=== PATIENT | male | born 1990 | race American Indian/Alaskan Native ===

== ENCOUNTER 2017-02-13 09:45 | Emergency (ER) | payer OTHER ==
[2017-02-13 09:49] VITALS: BMI 30.7
[2017-02-13] MEDS ORDERED: Sodium Chloride 0.9% 1,000 ML IV STA (10:42)
[2017-02-13 10:52] LABS: BASO # 0.1 K/uL (0.0-0.2); BASO % 0.6 % (0.0-2.0); EOS # 0.3 K/uL (0.0-0.7); EOS % 2.3 % (0.0-4.0); HEMATOCRIT 51.6 % (35.0-51.0); LYMPH # 4.2 K/uL (1.0-4.3); LYMPH % 28.7 % (20.0-40.0); MEAN CELL VOLUME 86.3 fl (80.0-94.0); MEAN CORPUSCULAR HEMOGLOBIN 28.1 pg (27.0-31.0); MEAN CORPUSCULAR HGB CONC 32.6 g/dL (33.0-37.0); MEAN PLATELET VOLUME 8.3 fl (7.2-11.7); MONO # 1.3 K/uL (0.0-0.8); MONO % 8.9 % (0.0-10.0); NEUT # 8.7 K/uL (1.8-7.0); NEUT % 59.5 % (50.0-75.0); NRBC % 0.2 % (0.0-0.0); RED CELL DISTRIBUTION WIDTH 13.7 % (11.5-14.5); WHITE BLOOD COUNT 14.7 K/uL (4.8-10.8)
[2017-02-13 11:06] LABS: ALB/GLOB RATIO 1.6 (1.0-2.1); ALCOHOL SERUM < 10 mg/dl (0-10); ALKALINE PHOSPHATASE 67 U/L (38-126); ALT/SGPT 60 U/L (21-72); AST/SGOT 48 U/L (17-59); BILIRUBIN,TOTAL 0.7 mg/dl (0.2-1.3); BLOOD UREA NITROGEN 13 mg/dl (9-20); CALCIUM 9.8 mg/dL (8.4-10.2); CARBON DIOXIDE 19 mmol/L (22-30); CHLORIDE 103 mmol/L (98-107); GFR AFRICAN-AMERICAN > 60; GLUCOSE,RANDOM 156 mg/dL (75-110); POTASSIUM 4.5 MMOL/L (3.6-5.0); SODIUM 140 mmol/l (132-148); TOTAL PROTEIN 8.1 G/DL (6.3-8.2)
--- NOTE | 2017-02-13 11:27 | CT ---
PROCEDURE: CT HEAD WITHOUT CONTRAST. HISTORY: syncope COMPARISON: None available. TECHNIQUE: Axial computed tomography images were obtained through the head/brain without intravenous contrast. Radiation dose: Total exam DLP = 877.64 mGy-cm. This CT exam was performed using one or more of the following dose reduction techniques: Automated exposure control, adjustment of the mA and/or kV according to patient size, and/or use of iterative reconstruction technique. FINDINGS: HEMORRHAGE: No intracranial hemorrhage. BRAIN: No mass effect or edema. No atrophy or chronic microvascular ischemic changes. VENTRICLES: Unremarkable. No hydrocephalus. CALVARIUM: Unremarkable. PARANASAL SINUSES: Unremarkable as visualized. No significant inflammatory changes. 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 Normal left mastoid air cells. There is fluid or soft tissue density in the right middle ear cavity and this may raise concern for otitis media. Please correlate clinically. OTHER FINDINGS: None. IMPRESSION: No intracranial mass, hemorrhage or evidence of acute infarct. Fluid/soft tissue density in right middle ear cavity. Please correlate clinically.
--- NOTE | 2017-02-13 11:45 | ED PDOC ---
Syncope/Near Syncope/Dizzyness Time Seen by Provider: 02/13/17 10:00 Chief Complaint (Nursing): Dizziness/Lightheaded Chief Complaint (Provider): Dizziness/Lightheaded History Per: Patient History/Exam Limitations: no limitations Onset/Duration Of Symptoms: Unknown Current Symptoms Are (Timing): Better Number Of Syncopal Episodes: 1 Activity At Onset Of Symptoms: Lying Associated Symptoms Preceding Syncopal Episode: No Predromal Symptoms (Sudden Onset) Seizure Or Post-ictal Symptoms: None Fall Associated With With Symptoms: Yes, No Injury As Result Of Fall Additional Complaint(s): Patient is a 27 year old male, otherwise healthy, brought to ED by EMS for possible syncope. As per patient, he woke up at 0800, went to the bathroom and went back to bed, no memory of incident until awoken by EMS. As per mother as bedside, patient fell from bed, unresponsive with a large amount of sweat. Patient states that when he came too he had leg pain and a headache but denies any other symptoms. Denies alcohol or drug use. Past Medical History Reviewed: Historical Data, Nursing Documentation, Vital Signs Vital Signs: Last Vital Signs Temp 98 F 02/13/17 09:49 Pulse 116 H 02/13/17 09:49 Resp 20 02/13/17 09:49 BP 115/70 02/13/17 09:49 Pulse Ox 98 02/13/17 09:53 - Medical History PMH: Asthma Denies: Chronic Kidney Disease - Surgical History Other surgeries: ACL repair - Family History Family History: States: Unknown Family Hx - Living Arrangements Living Arrangements: With Family - Social History Current smoker - smoking cessation education provided: No Alcohol: None Drugs: Denies - Home Medications Home Medications: Ambulatory Orders Medication Instructions Recorded Albuterol/Ipratropium [Duoneb 3 3 ml INH RTID PRN #0 neb 08/09/16 mg/0.5 mg (3 ml) UD] Amoxicillin/Clavulanate [Augmentin 1 tab PO Q12 #14 tab 08/09/16 875 MG-125 MG] Azithromycin [Zithromax] 250 mg PO DAILY #0 tab 08/09/16 - Allergies Allergies/Adverse Reactions: Allergies Allergy/AdvReac Type Severity Reaction Status Date / Time shellfish derived Allergy RASH Verified 08/05/16 09:50 Review of Systems ROS Statement: Except As Marked, All Systems Reviewed And Found Negative Constitutional: Positive for: Weakness. Negative for: Fever Eyes: Negative for: Vision Change Cardiovascular: Negative for: Chest Pain, Palpitations Respiratory: Negative for: Shortness of Breath Gastrointestinal: Negative for: Nausea, Vomiting Musculoskeletal: Positive for: Leg Pain Neurological: Positive for: Headache. Negative for: Weakness, Numbness Physical Exam - Reviewed Nursing Documentation Reviewed: Yes Vital Signs Reviewed: Yes - Physical Exam Appears: Positive for: Non-toxic, No Acute Distress Skin: Positive for: Normal Color, Warm Eye Exam: Positive for: Normal appearance Neck: Positive for: Normal, Painless ROM Cardiovascular/Chest: Positive for: Regular Rate, Rhythm. Negative for: Murmur Respiratory: Positive for: Normal Breath Sounds. Negative for: Respiratory Distress Gastrointestinal/Abdominal: Positive for: Normal Exam. Negative for: Tenderness Extremity: Positive for: Normal ROM. 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 Negative for: Motor/Sensory Deficits, Aphasia - Laboratory Results Result Diagrams: 02/13/17 10:40 02/13/17 10:40 - ECG O2 Sat by Pulse Oximetry: 98 (RA) Pulse Ox Interpretation: Normal Medical Decision Making Medical Decision Making: Time: 1025 Initial impression: Syncope Initial plan: -- CT-head -- EKG -- Tylenol -- Alcohol serum -- CMP -- UDS -- Salicylate -- Troponin -- CBC -- CXR -- NSF -- Urine culture -- U/A Time:1400 Labs reviewed, elevated WBC and sugar pt aware CT-head reviewed: PROCEDURE: CT HEAD WITHOUT CONTRAST. HISTORY: syncope COMPARISON: None available. TECHNIQUE: Axial computed tomography images were obtained through the head/brain without intravenous contrast. Radiation dose: Total exam DLP = 877.64 mGy-cm. This CT exam was performed using one or more of the following dose reduction techniques: Automated exposure control, adjustment of the mA and/or kV according to patient size, and/or use of iterative reconstruction technique. FINDINGS: HEMORRHAGE: No intracranial hemorrhage. BRAIN: No mass effect or edema. No atrophy or chronic microvascular ischemic changes. VENTRICLES: Unremarkable. No hydrocephalus. CALVARIUM: Unremarkable. PARANASAL SINUSES: Unremarkable as visualized. No significant inflammatory changes. 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 Normal left mastoid air cells. There is fluid or soft tissue density in the right middle ear cavity and this may raise concern for otitis media. Please correlate clinically. OTHER FINDINGS: None. IMPRESSION: No intracranial mass, hemorrhage or evidence of acute infarct. Fluid/soft tissue density in right middle ear cavity. Please correlate clinically. CXR results reviewed HISTORY: Syncope. COMPARISON: 08/07/2016. TECHNIQUE: Chest PA and lateral FINDINGS: LUNGS: No active pulmonary disease. PLEURA: No significant pleural effusion identified. No pneumothorax apparent. CARDIOVASCULAR: Normal. OSSEOUS STRUCTURES: No significant abnormalities. VISUALIZED UPPER ABDOMEN: Normal. OTHER FINDINGS: None. IMPRESSION: No active disease. No significant interval change compared to the prior examination(s). Time: 1510 Patient will be discharged home after vitals are retaken. Time: [address] examined his ears: no fluid noted. pt denies any ear or headache pain. Referred patient to outpatient ENT for a follow u p given ct finding. pt aware. also follow up with primary doctor/neurologist for kaley colvin.pt aware Scribe Attestation: Documented by Ivanna Ledesma acting as a scribe for Jamil Romero MD. Scribe Attestation: All medical record entries made by the Scribe were at my direction and personally dictated by me. I have reviewed the chart and agree that the record accurately reflects my personal performance of the history, physical exam, medical decision making, and the department course for this patient. I have also personally directed, reviewed, and agree with the discharge instructions and disposition. Disposition - Clinical Impression Clinical Impression: Syncope - Patient ED Disposition Is Patient to be Admitted: No Counseled Patient/Family Regarding: Studies Performed, Diagnosis, Need For Followup - Disposition Referrals: [facility] [Outside] [facility] [Outside] Hi Farrell MD [Staff Provider] - Disposition: Routine/Home Disposition Time: 12:30 Condition: IMPROVED Additional Instructions: follow up with your primary doctor in 1-2 days as well as ENT your sugar is high, please follow up return to the ED with any worsening or concerning symptoms. Instructions: Syncope (ED)
--- NOTE | 2017-02-13 13:30 | RAD ---
HISTORY: Syncope. COMPARISON: 08/07/2016. TECHNIQUE: Chest PA and lateral FINDINGS: LUNGS: No active pulmonary disease. PLEURA: No significant pleural effusion identified. No pneumothorax apparent. CARDIOVASCULAR: Normal. OSSEOUS STRUCTURES: No significant abnormalities. VISUALIZED UPPER ABDOMEN: Normal. OTHER FINDINGS: None. IMPRESSION: No active disease. No significant interval change compared to the prior examination(s).
[2017-02-13 14:37] LABS: RBC URINE 19 /hpf (0-3); URINE BILIRUBIN NEGATIVE (NEGATIVE); URINE BLOOD MODERATE (NEGATIVE); URINE COLOR YELLOW (YELLOW); URINE GLUCOSE (UA) NEG (Normal); URINE KETONE NEGATIVE (NEGATIVE); URINE LEUKOCYTE ESTERASE NEG Leu/uL (Negative); URINE PROTEIN 30 mg/dL (NEGATIVE); URINE UROBILINOGEN 0.2-1.0 mg/dL (0.2-1.0); WBC URINE 2 /hpf (0-5)
[2017-02-13 15:31] VITALS: BP 122/76; TEMP 98.3
[2017-02-13 15:42] VITALS: PULSE 88; RESP 18
[2017-02-13 15:51] VITALS: O2SAT 98
--- NOTE | 2017-02-13 17:03 | CARD ---
APPROVED REPORT EKG Measurement Heart [id number] ID [id number] <Conclusion> Sinus tachycardia Otherwise normal ECG
== END 2017-02-13 15:50 | disposition home or self-care (01) ==
LOC: H.ER 09:45
DX: R55 Syncope and collapse (principal); D72.829 Elevated white blood cell count, unspecified; J45.909 Unspecified asthma, uncomplicated

== ENCOUNTER 2017-05-28 08:19 | Observation (INO) | payer OTHER ==
[2017-05-28 08:19] VITALS: BMI 30.7
[2017-05-28] MEDS ORDERED: Sodium Chloride 0.9% 1,000 ML IV STA (08:43)
--- NOTE | 2017-05-28 08:47 | ED PDOC ---
Syncope/Near Syncope/Dizziness Time Seen by Provider: 05/28/17 08:21 Chief Complaint (Nursing): Dizziness/Lightheaded Chief Complaint (Provider): Syncopal Episode History Per: Family (mother) History/Exam Limitations: no limitations Onset/Duration Of Symptoms: Hrs (morning prior to arrival) Additional History Per: Patient Additional Complaint(s): Sergey Dc is a 27 year old male with a past medical history of asthma brought to the ED via EMS after experiencing a syncopal episode this morning. The patient has no recollection of the event, but was witnessed by his mother. The mother states the patient fell face first onto the ground, striking his head. The duration of loss of consciousness, according to the mother, lasted approximately 5 minutes. She denies any seizure activity or incontinence. The patient states he has not slept a lot this weekend and reports being tired. He denies chest pain, palpitations, or experiencing any other injury. PMD: None Provided Past Medical History Reviewed: Historical Data, Nursing Documentation, Vital Signs Vital Signs: Last Vital Signs Temp 97 F L 05/28/17 08:21 Pulse 110 H 05/28/17 08:21 Resp 20 05/28/17 08:21 BP 144/80 05/28/17 08:21 Pulse Ox 98 05/28/17 08:21 - Medical History PMH: Asthma Denies: Chronic Kidney Disease - Family History Family History: States: Unknown Family Hx - Social History Current smoker - smoking cessation education provided: No Ex-Smoker (has not smoked in the last 12 months): No Alcohol: Social Drugs: Denies - Home Medications Home Medications: Ambulatory Orders Medication Instructions Recorded Albuterol HFA [Ventolin HFA 90 2 puff IH Q4H PRN 05/28/17 mcg/actuation (8 g)] - Allergies Allergies/Adverse Reactions: Allergies Allergy/AdvReac Type Severity Reaction Status Date / Time shellfish derived Allergy RASH Verified 05/28/17 08:21 Review of Systems ROS Statement: Except As Marked, All Systems Reviewed And Found Negative Constitutional: Positive for: Other (syncopal episode) Cardiovascular: Negative for: Chest Pain, Palpitations Genitourinary Male: Negative for: Incontinence (and no seizure activity) Musculoskeletal: Positive for: Other (head injury) Neurological: Positive for: Other (LOC) Physical Exam - Reviewed Nursing Documentation Reviewed: Yes Vital Signs Reviewed: Yes - Physical Exam Appears: Positive for: Non-toxic, No Acute Distress Head Exam: Positive for: ATRAUMATIC. Negative for: NORMOCEPHALIC (head soft tissue swelling to left frontal area with no palpable fracture) Eye Exam: Positive for: Normal appearance, EOMI, PERRL (PERRLA) Neck: Positive for: Normal (nontendor) Cardiovascular/Chest: Positive for: Regular Rate, Rhythm, Chest Non Tender. Negative for: Murmur Respiratory: Positive for: Normal Breath Sounds. Negative for: Respiratory Distress Gastrointestinal/Abdominal: Positive for: Normal Exam, Soft. Negative for: Tenderness Extremity: Positive for: Normal ROM. Negative for: Deformity Neurologic/Psych: Positive for: Alert, Oriented (x3). Negative for: Motor/ Sensory Deficits - Laboratory Results Result Diagrams: 05/28/17 08:50 05/28/17 08:50 - ECG O2 Sat by Pulse Oximetry: 98 Medical Decision Making Medical Decision Making: Time: 08:21 Impression: Syncopal Episode Plan: * CT Head w/o Contrast * ED EKG * CMP * Drug Screen, Urine * CBC (with differential) * [RAD] Chest Two Views PA/LAT * NS 0.9% 1,000 ml IV 100 mls/hr * Reevaluation Scribe Attestation: Documented by Leatha Worthy, acting as a scribe for Quinn Swift MD. Provider Scribe Attestation: All medical record entries made by the Scribe were at my direction and personally dictated by me. I have reviewed the chart and agree that the record accurately reflects my personal performance of the history, physical exam, medical decision making, and the department course for this patient. I have also personally directed, reviewed, and agree with the discharge instructions and disposition. Disposition - Clinical Impression Clinical Impression: Syncope, Seizure - Patient ED Disposition Is Patient to be Admitted: Yes - Disposition Disposition Time: 10:16 Condition: FAIR Forms: [facility] ([place]) - Pt Status Changed To: Hospital Disposition Of: Observation - POA Present On Arrival: None
[2017-05-28 09:07] LABS: BASO # 0.1 K/uL (0.0-0.2); BASO % 0.9 % (0.0-2.0); EOS # 0.2 K/uL (0.0-0.7); EOS % 1.5 % (0.0-4.0); HEMATOCRIT 45.9 % (35.0-51.0); LYMPH # 3.2 K/uL (1.0-4.3); LYMPH % 20.9 % (20.0-40.0); MEAN CORPUSCULAR HEMOGLOBIN 27.6 pg (27.0-31.0); MEAN CORPUSCULAR HGB CONC 32.9 g/dL (33.0-37.0); MEAN PLATELET VOLUME 8.1 fl (7.2-11.7); MONO # 1.5 K/uL (0.0-0.8); NEUT # 10.1 K/uL (1.8-7.0); NEUT % 66.7 % (50.0-75.0); NRBC % 0.1 % (0.0-0.0); RED CELL DISTRIBUTION WIDTH 13.6 % (11.5-14.5); WHITE BLOOD COUNT 15.2 K/uL (4.8-10.8)
[2017-05-28 09:10] LABS: MEAN CELL VOLUME 83.9 fl (80.0-94.0)
[2017-05-28 09:20] LABS: ALB/GLOB RATIO 1.5 (1.0-2.1); ALKALINE PHOSPHATASE 55 U/L (38-126); ALT/SGPT 59 U/L (21-72); AST/SGOT 70 U/L (17-59); BLOOD UREA NITROGEN 16 mg/dl (9-20); CALCIUM 9.2 mg/dL (8.4-10.2); CARBON DIOXIDE 22 mmol/L (22-30); CHLORIDE 105 mmol/L (98-107); GFR AFRICAN-AMERICAN > 60; GLUCOSE,RANDOM 101 mg/dL (75-110); SODIUM 139 mmol/l (132-148); TOTAL PROTEIN 7.6 G/DL (6.3-8.2)
--- NOTE | 2017-05-28 09:20 | CT ---
PROCEDURE: CT HEAD WITHOUT CONTRAST. HISTORY: r/o bleed COMPARISON: None available. TECHNIQUE: Axial computed tomography images were obtained through the head/brain without intravenous contrast. Radiation dose: Total exam DLP = 910 mGy-cm. This CT exam was performed using one or more of the following dose reduction techniques: Automated exposure control, adjustment of the mA and/or kV according to patient size, and/or use of iterative reconstruction technique. FINDINGS: HEMORRHAGE: No intracranial hemorrhage. BRAIN: No mass effect or edema. No atrophy or chronic microvascular ischemic changes. VENTRICLES: Unremarkable. No hydrocephalus. CALVARIUM: Left frontal soft tissue hematoma. PARANASAL SINUSES: Unremarkable as visualized. No significant inflammatory changes. MASTOID AIR CELLS: Unremarkable as visualized. No inflammatory changes. OTHER FINDINGS: None. IMPRESSION: No intracranial hemorrhage.
[2017-05-28 09:33] LABS: POTASSIUM 5.3 MMOL/L (3.6-5.0)
--- NOTE | 2017-05-28 11:51 | CARD ---
APPROVED REPORT EKG Measurement Heart [id number] AR [id number] <Conclusion> Normal sinus rhythm Normal ECG
--- NOTE | 2017-05-28 12:36 | MRI ---
PROCEDURE: MRI BRAIN WITHOUT CONTRAST HISTORY: seizure COMPARISON: None. TECHNIQUE: Multiplanar, multisequence MR images of the brain were obtained without intravenous contrast enhancement. FINDINGS: HEMORRHAGE: None DWI: No evidence of an acute or early subacute infarction. BRAIN PARENCHYMA: No mass effect or edema. No atrophy or chronic microvascular ischemic changes. VENTRICLES: Unremarkable. No hydrocephalus. CRANIUM: Unremarkable. ORBITS: Grossly unremarkable. PARANASAL SINUSES/MASTOIDS: There is a fluid signal in the right maxillary and middle ear. Correlate clinically for right otomastoiditis. VASCULAR SYSTEM: Skull base flow voids intact. OTHER FINDINGS: There is left frontal scalp soft tissue swelling. IMPRESSION: No evidence of acute intracranial hemorrhage intracranial collection mass effect or midline shift. Right mastoid and middle ear effusion suspicious for otomastoiditis. Left frontal scalp soft tissue swelling.
--- NOTE | 2017-05-28 14:01 | RAD ---
HISTORY: syncope COMPARISON: Comparison chest 02/13/2017 TECHNIQUE: Chest PA and lateral FINDINGS: LUNGS: No active pulmonary disease. PLEURA: No significant pleural effusion identified. No pneumothorax apparent. CARDIOVASCULAR: Normal. OSSEOUS STRUCTURES: No significant abnormalities. VISUALIZED UPPER ABDOMEN: Normal. OTHER FINDINGS: None. IMPRESSION: No active disease.
[2017-05-28] MEDS ORDERED: Influenza Vaccine 18yr & older 0.5 ML/45 MCG SYR IM ONE (14:21)
[2017-05-28] MEDS ORDERED: Albuterol HFA 90 mcg/actuation (8 g) INH PRN (16:20)
--- NOTE | 2017-05-28 17:41 | CP.PCM.CON ---
History of Present Illness - History of Present Illness History of Present Illness: PATIENT SEEN CONSULT DICTATEED WORK UP COMPLETED NO AED IS NEEDED NEEDS AMB EEG AN OP NEED CARDIO CLEARANCE PRIOR TO DC Past Patient History - Infectious Disease Hx of Infectious Diseases: None - Past Medical History & Family History Past Medical History?: Yes - Past Social History Smoking Status: Never Smoked - CARDIAC Hx Cardiac Disorders: No - PULMONARY Hx Respiratory Disorders: Yes Hx Asthma: Yes - NEUROLOGICAL Hx Neurological Disorder: No - HEENT Hx HEENT Problems: No - RENAL Hx Chronic Kidney Disease: No - ENDOCRINE/METABOLIC Hx Endocrine Disorders: No - HEMATOLOGICAL/ONCOLOGICAL Hx Blood Disorders: No - INTEGUMENTARY Hx Dermatological Problems: No - MUSCULOSKELETAL/RHEUMATOLOGICAL Hx Falls: Yes Other/Comment: left knee ACL repair - GASTROINTESTINAL Hx Gastrointestinal Disorders: No - GENITOURINARY/GYNECOLOGICAL Hx Genitourinary Disorders: No - PSYCHIATRIC Hx Psychophysiologic Disorder: No Hx Substance Use: No - SURGICAL HISTORY Hx Surgeries: Yes Hx Orthopedic Surgery: Yes (Left knee surgery to repair ACL) - ANESTHESIA Hx Anesthesia: Yes Hx Anesthesia Reactions: No Hx Malignant Hyperthermia: No Meds Allergies/Adverse Reactions: Allergies Allergy/AdvReac Type Severity Reaction Status Date / Time shellfish derived Allergy RASH Verified 05/28/17 08:21 - Medications Medications: Current Medications Albuterol (Ventolin Hfa 90 Mcg/Actuation (8 G)) 2 puff INH RQ6 PRN PRN Reason: Shortness of Breath Enoxaparin Sodium (Lovenox) 40 mg SC DAILY EDWAR PRN Reason: Protocol Sodium Chloride (Sodium Chloride 0.9%) 1,000 mls @ 100 mls/hr IV .Q10H STA Stop: 05/28/17 18:42 Last Admin: 05/28/17 09:13 Dose: 100 mls/hr Results - Vital Signs Recent Vital Signs: Last Vital Signs Temp 97.7 F 05/28/17 15:28 Pulse 74 05/28/17 15:28 Resp 20 05/28/17 15:28 BP 112/74 05/28/17 15:28 Pulse Ox 98 05/28/17 15:28 - Labs Result Diagrams: 05/28/17 08:50 05/28/17 08:50
--- NOTE | 2017-05-28 22:07 | CP.PCM.HP ---
History of Present Illness - History of Present Illness History of Present Illness: A 27 yr old male with no sig PMHx came with c\o lost conscious after stressful with poor PO intake food\fluids .notes he is been working many hrs and has stress . hx of one simialr episode in past denies seizure likwe activity, urine\bowel incontinence. so far [employer] work Past Patient History - Infectious Disease Hx of Infectious Diseases: None - Past Medical History & Family History Past Medical History?: Yes - Past Social History Smoking Status: Never Smoked - CARDIAC Hx Cardiac Disorders: No - PULMONARY Hx Respiratory Disorders: Yes Hx Asthma: Yes - NEUROLOGICAL Hx Neurological Disorder: No - HEENT Hx HEENT Problems: No - RENAL Hx Chronic Kidney Disease: No - ENDOCRINE/METABOLIC Hx Endocrine Disorders: No - HEMATOLOGICAL/ONCOLOGICAL Hx Blood Disorders: No - INTEGUMENTARY Hx Dermatological Problems: No - MUSCULOSKELETAL/RHEUMATOLOGICAL Hx Falls: Yes Other/Comment: left knee ACL repair - GASTROINTESTINAL Hx Gastrointestinal Disorders: No - GENITOURINARY/GYNECOLOGICAL Hx Genitourinary Disorders: No - PSYCHIATRIC Hx Psychophysiologic Disorder: No Hx Substance Use: No - SURGICAL HISTORY Hx Surgeries: Yes Hx Orthopedic Surgery: Yes (Left knee surgery to repair ACL) - ANESTHESIA Hx Anesthesia: Yes Hx Anesthesia Reactions: No Hx Malignant Hyperthermia: No Meds Allergies/Adverse Reactions: Allergies Allergy/AdvReac Type Severity Reaction Status Date / Time shellfish derived Allergy RASH Verified 05/28/17 08:21 Physical Exam - Additional Findings Additional findings: Appears: Positive for: Non-toxic, No Acute Distress Head Exam: Positive for: ATRAUMATIC. Negative for: NORMOCEPHALIC (head soft tissue swelling to left frontal area with no palpable fracture) Eye Exam: Positive for: Normal appearance, EOMI, PERRL (PERRLA) Neck: Positive for: Normal (nontendor) Cardiovascular/Chest: Positive for: Regular Rate, Rhythm, Chest Non Tender. Negative for: Murmur Respiratory: Positive for: Normal Breath Sounds. Negative for: Respiratory Distress Gastrointestinal/Abdominal: Positive for: Normal Exam, Soft. Negative for: Tenderness Extremity: Positive for: Normal ROM. Negative for: Deformity Neurologic/Psych: Positive for: Alert, Oriented (x3). Negative for: Motor/ Sensory Deficits Results - Vital Signs Recent Vital Signs: Last Vital Signs Temp 98.3 F 05/28/17 18:58 Pulse 78 05/28/17 18:58 Resp 20 05/28/17 18:58 BP 125/76 05/28/17 18:58 Pulse Ox 99 05/28/17 18:58 - Labs Result Diagrams: 05/29/17 04:30 05/29/17 04:30 Labs: Laboratory Results - last 24 hr 05/28/17 18:30 Troponin I < 0.0120 Assessment & Plan (1) Syncope Status: Acute Comment: r\o seizures. neurochecks. ekg\trops q 8hr. ASA. neurology. MRI of the head\carotid doppler. ECHO. Orion vasovagal
[2017-05-29 05:59] LABS: HEMATOCRIT 43.6 % (35.0-51.0); MEAN CORPUSCULAR HEMOGLOBIN 28.1 pg (27.0-31.0); MEAN CORPUSCULAR HGB CONC 33.4 g/dL (33.0-37.0); RED CELL DISTRIBUTION WIDTH 13.4 % (11.5-14.5); WHITE BLOOD COUNT 14.7 K/uL (4.8-10.8)
[2017-05-29 06:12] LABS: ALB/GLOB RATIO 1.5 (1.0-2.1); ALKALINE PHOSPHATASE 59 U/L (38-126); ALT/SGPT 58 U/L (21-72); AST/SGOT 68 U/L (17-59); BILIRUBIN,TOTAL 0.8 mg/dl (0.2-1.3); BLOOD UREA NITROGEN 14 mg/dl (9-20); CALCIUM 8.7 mg/dL (8.4-10.2); CARBON DIOXIDE 24 mmol/L (22-30); CHLORIDE 105 mmol/L (98-107); GFR AFRICAN-AMERICAN > 60; GLUCOSE,RANDOM 90 mg/dL (75-110); SODIUM 140 mmol/l (132-148)
[2017-05-29 06:37] LABS: THYROID STIMULATING HORMONE 0.31 mIU/ML (0.46-4.68)
--- NOTE | 2017-05-29 07:30 | CARD ---
APPROVED REPORT EKG Measurement Heart [id number] CO 158P52 [id number] <Conclusion> Normal sinus rhythm Normal ECG
--- NOTE | 2017-05-29 07:33 | CARD ---
APPROVED REPORT EKG Measurement Heart [id number] OK 154P43 [id number] <Conclusion> Sinus tachycardia Otherwise normal ECG
--- NOTE | 2017-05-29 07:59 | CON ---
DATE: 05/28/2017 REASON FOR CONSULTATION: Loss of consciousness. CHIEF COMPLAINT: The patient was brought in by EMS this morning with the history of syncopal attack at home. From neurological point of view, I was called into evaluate him for further management. HISTORY OF PRESENT ILLNESS: Mr. Sergey Dc is a 27-year-old, morbidly obese, right-handed, male in usual state of health woke up this morning, he went to the kitchen to drink water and the next thing he realized he was on the floor. He bit his tongue. At that time, he fell down. No urinary incontinence. No bowel and bladder incontinence. No history of involuntary movements being witnessed by his mother, 911 was called, immediately he was transferred to the EMS and brought into [facility] for further evaluation. He has a similar episode last month. He fell down from the bed and he lost his consciousness. He was admitted and he did have workup. No diagnoses was made at that time. PAST MEDICAL HISTORY: Unremarkable. ALLERGIES: SHELLFISH. PERSONAL HISTORY: Denied smoking or alcohol use. REVIEW OF SYSTEMS: A 16-point system had been reviewed. From neurologic standpoint, recurrent syncope. PHYSICAL EXAMINATION: VITAL SIGNS: Blood pressure 112/70 with mean arterial pressure of 83, respiratory rate 18, and temperature afebrile. NECK: Supple. No carotid bruits. HEART: Sounds regular. CHEST: Fair air entry. EXTREMITIES: No edema of legs. NEUROLOGICAL: Mental status examination, he is awake, alert, and oriented to person, place, and time. His speech is clear. Naming, repetition, fluency, and comprehension all within normal. MOTOR EXAMINATION: He was able to lift both upper extremities against gravity. No drift noted. Power is symmetric on either side. Deep tendon reflexes are absent. Plantars are downgoing. Coordination, [id number] test was intact. Gait is normal. The scalp swelling over the left front being noted. Rest of the examination is normal. LABORATORY DATA: CT of the head being reviewed by me and MRI of the brain also reviewed by me. No evidence of structural cause, tumor, or bleed. Medial temporal lobe is normal. No Hippocampal atrophy noted. Electroencephalogram have been reviewed. No electroencephalographic focal slowing or paroxysmal activities activities. Labs, WBC 13.2, hemoglobin 15.1, hematocrit 45.9, and platelet 307. Sodium 139, potassium 5.3, chloride 105, BUN 16, creatinine 1.2. Urine tox screen negative. RECOMMENDATIONS: Recurrent syncopal attack. Cardiac workup is recommended. Cardiology should be seen before his discharge. From neurologic point of view, no further workup is needed. The patient is advised to see me for follow-up visit as outpatient for possible extensive ambulatory electroencephalogram. In the meantime, the patient is advised not to drive until the workup is completed. Phill Garcia MD MTDD
[2017-05-29] MEDS ORDERED: Enoxaparin 40 mg Syringe SC SCH (09:00)
--- NOTE | 2017-05-29 09:40 | EEG ---
DATE OF STUDY: 05/28/2017 This is a 16-channel electroencephalogram of awake and drowsy adult. During the study, photic stimulation was performed. Hyperventilation was not performed. The resting electroencephalogram consists of 30 to 40 microvolts, 9 to 11 hertz alpha activity seen at parietal and occipital leads. Anteriorly, fast activity superimposed with 2 to 3 hertz delta activity seen at frontal and central leads. The photic stimulation did not evoke driving response noted at 2 to 20 hertz. Intermittent movement artifact contaminated the background rhythm. At times, a brief period of high-amplitude delta activity is seen which is consistent with late drowsiness. IMPRESSION: This is a normal electroencephalogram of awake and drowsy adult. During the study, neither electroencephalographic paroxysmal activities nor focal slowing noted. Phill Garcia MD
--- NOTE | 2017-05-29 11:01 | US ---
PROCEDURE: Duplex ultrasound of the carotid and vertebral arteries. HISTORY: syncope COMPARISON: None available. TECHNIQUE: Grayscale and duplex Doppler evaluation of the cervical carotid and vertebral arteries were performed. The common carotid, carotid bifurcations and cervical ICA and proximal ECA were evaluated. The vertebral arteries were evaluated for gross patency and direction. FINDINGS: RIGHT CAROTID ARTERIES: Common Carotid Artery: Normal. Maximal flow velocity of 98.8 cm/s. Carotid Bifurcation: Normal. Internal Carotid Artery:Heterogeneous plaque formation. Maximal flow velocity of 78.6 cm/s. External Carotid Artery (proximal branches): Normal. Maximal flow velocity of 82.8 cm/s. ICA/CCA Ratio: 1.0 LEFT CAROTID ARTERIES: Common Carotid Artery: Normal. Maximal flow velocity of 126.8 cm/s. Carotid Bifurcation: Normal Internal Carotid Artery:Heterogeneous plaque formation. Maximal flow velocity of 119.3 cm/s. External Carotid Artery (proximal branches): Normal. Maximal flow velocity of 53.8 cm/s. ICA/CCA Ratio: VERTEBRAL ARTERIES: Right Vertebral Artery: Patent. Antegrade flow. Left Vertebral Artery: Patent. Antegrade flow. OTHER FINDINGS: None. IMPRESSION: Right ICA degree of stenosis: Less than 50% Left ICA degree of stenosis: Less than 50% Reference Internal Carotid Artery (ICA) Peak Systolic Velocity (PSV) for above: 1. Less than 50% stenosis less than 125 cm/s peak systolic velocity 2. 50-69% stenosis 125-230cm/s peak systolic velocity 3. Greater than 70% but less than near occlusion greater than 230 cm/s peak systolic velocity
[2017-05-29 12:27] VITALS: O2SAT 98
--- NOTE | 2017-05-29 15:44 | CARD ---
APPROVED REPORT EXAM: Two-dimensional and M-mode echocardiogram with Doppler and color Doppler. Other Information Quality : GoodRhythm : NSR INDICATION Syncope 2D DIMENSIONS IVSd1.45 (0.7-1.1cm)LVDd5.66 (3.9-5.9cm) LVOT Diameter2.37 (1.8-2.4cm)PWd0.87 (0.7-1.1cm) IVSs2.00 (0.8-1.2cm)LVDs3.76 (2.5-4.0cm) FS (%) 33.5 %PWs1.67 (0.8-1.2cm) M-Mode DIMENSIONS Left Atrium (MM)3.94 (2.5-4.0cm)IVSd1.34 (0.7-1.1cm) Aortic Root3.28 (2.2-3.7cm)LVDd5.00 (4.0-5.6cm) Aortic Cusp Exc.1.94 (1.5-2.0cm)PWd1.38 (0.7-1.1cm) IVSs1.28 cmFS (%) 14 % LVDs4.31 (2.0-3.8cm)PWs1.25 cm Mitral Valve MV E Hwpsllnf42.8cm/sMV DECEL [id number] A Oknciiqq76.9cm/s MV [id number]/A ratio1.7MVA (PHT)2.95cm2 TDI Lateral E' Peak V14.83cm/sMedial E' Peak V13.53cm/sE/Lateral E'4.6 E/Medial E'5.1 Pulmonary Valve PV Peak Swoizrzr90.2cm/s Tricuspid Valve TR Peak Gpbidyct690xj/sRAP [id number] Peak Gr.16mmHg [id number] LEFT VENTRICLE The left ventricle is normal size. There is normal left ventricular wall thickness. The left ventricular function is normal. The left ventricular ejection fraction is within the normal range. The Ejection Fraction is 65-70%. There is normal LV segmental wall motion. The left ventricular diastolic function is normal. No left ventricle thrombus noted on this study. There is no mass noted in the left ventricle. RIGHT VENTRICLE The right ventricle is normal size. There is normal right ventricular wall thickness. The right ventricular systolic function is normal. ATRIA The left atrium size is normal. The right atrium size is normal. The interatrial septum is intact with no evidence for an atrial septal defect. AORTIC VALVE The aortic valve is normal in structure and function. No aortic regurgitation is present. There is no aortic valvular stenosis. There is no aortic valvular vegetation. MITRAL VALVE The mitral valve is normal in structure and function. There is no evidence of mitral valve prolapse. There is no mitral valve stenosis. There is no mitral valve regurgitation noted. TRICUSPID VALVE The tricuspid valve is normal in structure and function. There is no tricuspid valve regurgitation noted. There is no tricuspid valve prolapse or vegetation. There is no tricuspid valve stenosis. PULMONIC VALVE The pulmonary valve is normal in structure and function. There is no pulmonic valvular regurgitation. There is no pulmonic valvular stenosis. GREAT VESSELS The aortic root is normal in size. The IVC is normal in size and collapses >50% with inspiration. PERICARDIAL EFFUSION The pericardium appears normal. There is no pleural effusion. <Conclusion> The left ventricle is normal size. The left ventricular function is normal. The left ventricular ejection fraction is within the normal range. The Ejection Fraction is 65-70%.
--- NOTE | 2017-05-29 16:51 | CARD ---
APPROVED REPORT EKG Measurement Heart [id number] <Conclusion> Normal sinus rhythm Normal ECG
[2017-05-29] MEDS ORDERED: Magnesium Sulfate 2 gm/50 ml 2 GM/50 ML BAG IV ONE (17:00)
[2017-05-29 19:03] VITALS: BP 136/83; PULSE 84; RESP 20; TEMP 98.1
[2017-05-29] MEDS ORDERED: Albuterol HFA 90 mcg/actuation (8 g) IH PRN (19:41)
--- NOTE | 2017-05-29 21:30 | CP.PCM.CON ---
History of Present Illness - History of Present Illness History of Present Illness: Two syncopal episodes. One occurred as he was getting out of bed the other was after standing from seated position. Pt had no presyncopal sx prior to the first event. Prior to the second event he felt lightheaded for several settings. denies cp, sob on exertion, orthopnea, pnd, edema, palp, blurry vision. denies f/c/n/v/d/c. denies prior hx of sz d/o or syncope. pt has no fam hx of scd. Review of Systems - Constitutional Constitutional: As Per HPI. absent: Anorexia, Chills, Daytime Sleepiness, Excessive Sweating, Fatigue, Fever, Frequent Falls, Headache, Increased Appetite , Lethargy, Malaise, Night Sweats, Snoring, Sleep Apnea, Weight Gain, Weight Loss, Weakness, Other - EENT Eyes: As Per HPI. absent: Blind Spots, Blurred Vision, Change in Vision, Decreased Night Vision, Diplopia, Discharge, Dry Eye, Exophthalmos, Floaters, Irritation, Itchy Eyes, Loss of Peripheral Vision, Pain, Photophobia, Requires Corrective Lenses, Sees Flashes, Spots in Vision, Tunnel Vision, Other Visual Disturbances, Loss of Vision, Other Ears: As Per HPI. absent: Decreased Hearing, Ear Discharge, Ear Pain, Tinnitus , Abnormal Hearing, Disequilibrium, Dizziness, Other Nose/Mouth/Throat: As Per HPI. absent: Epistaxis, Nasal Congestion, Nasal Discharge, Nasal Obstruction, Nasal Trauma, Nose Pain, Post Nasal Drip, Sinus Pain, Sinus Pressure, Bleeding Gums, Change in Voice, Dental Pain, Dry Mouth, Dysphagia, Halitosis, Hoarsness, Lip Swelling, Mouth Lesions, Mouth Pain, Odynophagia, Sore Throat, Throat Swelling, Tongue Swelling, Facial Pain, Neck Pain, Neck Mass, Other - Cardiovascular Cardiovascular: As Per HPI, Lightheadedness, Syncope. absent: Acrocyanosis, Chest Pain, Chest Pain at Rest, Chest Pain with Activity, Claudication, Diaphoresis, Dyspnea, Dyspnea on Exertion, Edema, Irregular Heart Rhythm, Pain Radiating to Arm/Neck/Jaw, Leg Edema, Leg Ulcers, Orthopnea, Palpitations, Paroxysmal Nocturnal Dyspnea, Pedal Edema, Radiating Pain, Rapid Heart Rate, Slow Heart Rate, Other - Respiratory Respiratory: As Per HPI. absent: Cough, Dyspnea, Hemoptysis, Dyspnea on Exertion, Wheezing, Snoring, Stridor, Pain on Inspiration, Chest Congestion, Excessive Mucous Production, Change in Mucous Color, Pain with Coughing, Other - Gastrointestinal Gastrointestinal: As Per HPI. absent: Abdominal Pain, Belching, Bloating, Change in Bowel Habits, Change in Stool Character, Coffee Ground Emesis, Constipation, Cramping, Diarrhea, Dyspepsia, Dysphagia, Early Satiety, Excessive Flatus, Fecal Incontinence, Heartburn, Hematemesis, Hematochezia, Loose Stools, Melena, Nausea, Odynophagia, Temesmus, Vomiting, Other - Genitourinary Genitourinary: As Per HPI. absent: Change in Urinary Stream, Difficulty Urinating, Dysuria, Flank Pain, Hematuria, Pyuria, Nocturia, Urinary Incontinence, Urinary Frequency, Urinary Hesitance, Urinary Urgency, Voiding Freq/Small Amts, Freq UTI, Hx Renal/Bladder Calculi, Hx /Renal Surgery, Bladder Distension, Other - Musculoskeletal Musculoskeletal: As Per HPI. absent: Abnormal Gait, Arthralgias, Atrophy, Back Pain, Deformity, Joint Swelling, Limited Range of Motion, Loss of Height, Muscle Cramps, Muscle Weakness, Myalgias, Neck Pain, Numbness, Radiating Pain into Limb, Stiffness, Tingling, Other - Integumentary Integumentary: As Per HPI. absent: Acne, Alopecia, Bleeding Lesions, Change in Hair, Change in Nails, Change in Pigmentation, Changing Lesions, Dry Skin, Erythema, Furuncle, Hirsutism, Lesions, New Lesions, Non-Healing Lesions, Photosensitivity, Pruritus, Rash, Skin Pain, Skin Ulcer, Sores, Striae, Swelling , Unusual Bruising, Wounds, Jaundice, Other - Neurological Neurological: As Per HPI. absent: Abnormal Gait, Abnormal Hearing, Abnormal Movements, Abnormal Speech, Behavioral Changes, Burning Sensations, Confusion, Convulsions, Disequilibrium, Dizziness, Numbness, Focal Weakness, Frequent Falls , Headaches, Lack of Coordination, Loss of Vision, Memory Loss, Paresthesias, Radicular Pain, Restless Legs, Sensory Deficit, Syncope, Tingling, Tremor, Vertigo, Weakness, Other Visual Disturbances, Other - Psychiatric Psychiatric: As Per HPI. absent: Abnormal Sleep Pattern, Anhedonia, Anxiety, Auditory Hallucinations, Behavioral Changes, Change in Appetite, Change in Libido, Confusion, Depression, Difficulty Concentrating, Hallucinations, Homicidal Ideation, Hopelessness, Irritability, Memory Loss, Mood Swings, Panic Attacks, Paranoia, Suicidal Ideation, Visual Hallucinations, Tactile Hallucinations, Other - Endocrine Endocrine: As Per HPI. absent: Change in Body Appearance, Change in Libido, Cold Intolorance, Deepening of Voice, Excessive Sweating, Fatigue, Flushing, Heat Intolorance, Increase in Ring/Shoe/Hat Size, Palpitations, Polydipsia, Polyphagia, Polyuria, Other - Hematologic/Lymphatic Hematologic: As Per HPI. absent: Easy Bleeding, Easy Bruising, Lymphadenopathy , Other Past Patient History - Infectious Disease Hx of Infectious Diseases: None - Past Medical History & Family History Past Medical History?: Yes - Past Social History Smoking Status: Never Smoked Chewing Tobacco Use: No Cigar Use: No Alcohol: None Drugs: Denies Home Situation {Lives}: With Family - CARDIAC Hx Cardiac Disorders: No - PULMONARY Hx Respiratory Disorders: Yes Hx Asthma: Yes - NEUROLOGICAL Hx Neurological Disorder: No - HEENT Hx HEENT Problems: No - RENAL Hx Chronic Kidney Disease: No - ENDOCRINE/METABOLIC Hx Endocrine Disorders: No - HEMATOLOGICAL/ONCOLOGICAL Hx Blood Disorders: No - INTEGUMENTARY Hx Dermatological Problems: No - MUSCULOSKELETAL/RHEUMATOLOGICAL Hx Falls: Yes Other/Comment: left knee ACL repair - GASTROINTESTINAL Hx Gastrointestinal Disorders: No - GENITOURINARY/GYNECOLOGICAL Hx Genitourinary Disorders: No - PSYCHIATRIC Hx Psychophysiologic Disorder: No Hx Substance Use: No - SURGICAL HISTORY Hx Surgeries: Yes Hx Orthopedic Surgery: Yes (Left knee surgery to repair ACL) - ANESTHESIA Hx Anesthesia: Yes Hx Anesthesia Reactions: No Hx Malignant Hyperthermia: No Meds Allergies/Adverse Reactions: Allergies Allergy/AdvReac Type Severity Reaction Status Date / Time shellfish derived Allergy RASH Verified 05/28/17 08:21 - Medications Medications: Current Medications Albuterol (Ventolin Hfa 90 Mcg/Actuation (8 G)) 2 puff IH Q4H PRN PRN Reason: Shortness of Breath Enoxaparin Sodium (Lovenox) 40 mg SC DAILY EDWAR PRN Reason: Protocol Last Admin: 05/29/17 10:09 Dose: 40 mg Physical Exam - Constitutional Appears: Well - Head Exam Head Exam: ATRAUMATIC, NORMAL INSPECTION, NORMOCEPHALIC - Eye Exam Eye Exam: EOMI, Normal appearance, PERRL. absent: Conjunctival injection, Nystagmus, Periorbital swelling, Periorbital tenderness, Scleral icterus Pupil Exam: NORMAL ACCOMODATION, PERRL. absent: Fixed, Irregular, Miosis, Mydriatic, Unequal - ENT Exam ENT Exam: Mucous Membranes Moist, Normal Exam. absent: Mucous Membranes Dry, Normal External Ear Exam, Normal Oropharynx, TM's Normal Bilaterally - Neck Exam Neck exam: Positive for: Normal Inspection. Negative for: Full Rom, Lymphadenopathy, Meningismus, Tenderness, Thyromegaly - Respiratory Exam Respiratory Exam: Clear to Auscultation Bilateral, NORMAL BREATHING PATTERN. absent: Accessory Muscle Use, Chest Wall Tenderness, Decreased Breath Sounds, Prolonged Expiratory Phase, Rales, Rhonchi, Wheezes, Respiratory Distress, Stridor - Cardiovascular Exam Cardiovascular Exam: REGULAR RHYTHM, +S1, +S2, Systolic Murmur. absent: Bradycardia, Tachycardia, Clicks, Diastolic murmur, Gallop, Irregular Rhythm, JVD, RRR, Rubs, +S4 - GI/Abdominal Exam GI & Abdominal Exam: Normal Bowel Sounds, Soft. absent: Bruit, Diminished Bowel Sounds, Distended, Firm, Guarding, Hernia, Hyperactive Bowel Sounds, Hypoactive Bowel Sounds, Mass, Organomegaly, Pulsatile Mass, Rebound, Rigid, Tenderness - Rectal Exam Rectal Exam: Deferred - Extremities Exam Extremities exam: Positive for: normal inspection. Negative for: calf tenderness, full ROM, joint swelling, normal capillary refill, pedal edema, tenderness, pedal pulses present - Back Exam Back exam: NORMAL INSPECTION. absent: CVA tenderness (L), CVA tenderness (R), FULL ROM, muscle spasm, paraspinal tenderness, rash noted, tenderness, vertebral tenderness - Neurological Exam Neurological exam: Alert, CN II-XII Intact, Normal Gait, Oriented x3, Reflexes Normal - Psychiatric Exam Psychiatric exam: Normal Affect, Normal Mood - Skin Skin Exam: Dry, Intact, Normal Color, Warm Results - Vital Signs Recent Vital Signs: Last Vital Signs Temp 98.1 F 05/29/17 19:01 Pulse 84 05/29/17 19:01 Resp 20 05/29/17 19:01 BP 136/83 05/29/17 19:01 Pulse Ox 98 05/29/17 19:01 - Labs Result Diagrams: 05/29/17 04:30 05/29/17 04:30 Labs: Laboratory Results - last 24 hr 05/28/17 05/29/17 05/29/17 08:43 04:30 04:30 WBC 14.7 H RBC 5.19 Hgb 14.6 Hct 43.6 MCV 84.0 MCH 28.1 MCHC 33.4 RDW 13.4 Plt Count 304 Sodium 140 Potassium 4.0 Chloride 105 Carbon Dioxide 24 Anion Gap 15 BUN 14 Creatinine 1.2 Est GFR ( Amer) > 60 Est GFR (Non-Af Amer) > 60 POC Glucose (mg/dL) 102 Random Glucose 90 Calcium 8.7 Total Bilirubin 0.8 AST 68 H ALT 58 Alkaline Phosphatase 59 Troponin I < 0.0120 Total Protein 7.0 Albumin 4.2 Globulin 2.8 Albumin/Globulin Ratio 1.5 Vitamin B12 390 TSH 3rd Generation 0.31 L 05/29/17 10:35 WBC RBC Hgb Hct MCV MCH MCHC RDW Plt Count Sodium Potassium Chloride Carbon Dioxide Anion Gap BUN Creatinine Est GFR ( Amer) Est GFR (Non-Af Amer) POC Glucose (mg/dL) Random Glucose Calcium Total Bilirubin AST ALT Alkaline Phosphatase Troponin I < 0.0120 Total Protein Albumin Globulin Albumin/Globulin Ratio Vitamin B12 TSH 3rd Generation Assessment & Plan (1) PAC (premature atrial contraction) Status: Acute (2) Syncope Status: Acute - Assessment and Plan (Free Text) Plan: pac's noted on tele. pt has no palp. pt's syncopal episodes are most c/w orthostatic syncope. Recommend Mag SO4 2gm IV. Thereafter pt may be d/c'd to home. He is instructed to increase fluid intake, stand up slowly, f/u in 2 weeks for holter monitor. no sustained arrythmias on tele. EKG reveals no abn , echo shows nml ef, no fam hx of scd. 90 min total care time.
--- NOTE | 2017-05-29 22:57 | CP.PCM.HP ---
Past Patient History - Infectious Disease Hx of Infectious Diseases: None - Past Medical History & Family History Past Medical History?: Yes - Past Social History Smoking Status: Never Smoked Chewing Tobacco Use: No Cigar Use: No Alcohol: None Drugs: Denies Home Situation {Lives}: With Family - CARDIAC Hx Cardiac Disorders: No - PULMONARY Hx Respiratory Disorders: Yes Hx Asthma: Yes - NEUROLOGICAL Hx Neurological Disorder: No - HEENT Hx HEENT Problems: No - RENAL Hx Chronic Kidney Disease: No - ENDOCRINE/METABOLIC Hx Endocrine Disorders: No - HEMATOLOGICAL/ONCOLOGICAL Hx Blood Disorders: No - INTEGUMENTARY Hx Dermatological Problems: No - MUSCULOSKELETAL/RHEUMATOLOGICAL Hx Falls: Yes Other/Comment: left knee ACL repair - GASTROINTESTINAL Hx Gastrointestinal Disorders: No - GENITOURINARY/GYNECOLOGICAL Hx Genitourinary Disorders: No - PSYCHIATRIC Hx Psychophysiologic Disorder: No Hx Substance Use: No - SURGICAL HISTORY Hx Surgeries: Yes Hx Orthopedic Surgery: Yes (Left knee surgery to repair ACL) - ANESTHESIA Hx Anesthesia: Yes Hx Anesthesia Reactions: No Hx Malignant Hyperthermia: No Meds Allergies/Adverse Reactions: Allergies Allergy/AdvReac Type Severity Reaction Status Date / Time shellfish derived Allergy RASH Verified 05/28/17 08:21 Results - Vital Signs Recent Vital Signs: Last Vital Signs Temp 98.1 F 05/29/17 19:01 Pulse 84 05/29/17 19:01 Resp 20 05/29/17 19:01 BP 136/83 05/29/17 19:01 Pulse Ox 98 05/29/17 19:01 - Labs Result Diagrams: 05/29/17 04:30 05/29/17 04:30 Labs: Laboratory Results - last 24 hr 05/28/17 05/29/17 05/29/17 08:43 04:30 04:30 WBC 14.7 H RBC 5.19 Hgb 14.6 Hct 43.6 MCV 84.0 MCH 28.1 MCHC 33.4 RDW 13.4 Plt Count 304 Sodium 140 Potassium 4.0 Chloride 105 Carbon Dioxide 24 Anion Gap 15 BUN 14 Creatinine 1.2 Est GFR ( Amer) > 60 Est GFR (Non-Af Amer) > 60 POC Glucose (mg/dL) 102 Random Glucose 90 Calcium 8.7 Total Bilirubin 0.8 AST 68 H ALT 58 Alkaline Phosphatase 59 Troponin I < 0.0120 Total Protein 7.0 Albumin 4.2 Globulin 2.8 Albumin/Globulin Ratio 1.5 Vitamin B12 390 TSH 3rd Generation 0.31 L 05/29/17 10:35 WBC RBC Hgb Hct MCV MCH MCHC RDW Plt Count Sodium Potassium Chloride Carbon Dioxide Anion Gap BUN Creatinine Est GFR ( Amer) Est GFR (Non-Af Amer) POC Glucose (mg/dL) Random Glucose Calcium Total Bilirubin AST ALT Alkaline Phosphatase Troponin I < 0.0120 Total Protein Albumin Globulin Albumin/Globulin Ratio Vitamin B12 TSH 3rd Generation
--- NOTE | 2017-05-29 22:59 | CP.PCM.DIS ---
Provider - Provider Date of Admission: 05/28/17 10:14 Attending physician: Loyda Tirado MD Time Spent in preparation of Discharge (in minutes): 30 Hospital Course - Lab Results Lab Results: Most Recent Lab Values WBC 14.7 K/uL (4.8-10.8) H 05/29/17 04:30 RBC 5.19 Mil/uL (4.40-5.90) 05/29/17 04:30 Hgb 14.6 g/dL (12.0-18.0) 05/29/17 04:30 Hct 43.6 % (35.0-51.0) 05/29/17 04:30 MCV 84.0 fl (80.0-94.0) 05/29/17 04:30 MCH 28.1 pg (27.0-31.0) 05/29/17 04:30 MCHC 33.4 g/dL (33.0-37.0) 05/29/17 04:30 RDW 13.4 % (11.5-14.5) 05/29/17 04:30 Plt Count 304 K/uL (130-400) 05/29/17 04:30 MPV 8.1 fl (7.2-11.7) 05/28/17 08:50 Neut % (Auto) 66.7 % (50.0-75.0) 05/28/17 08:50 Lymph % (Auto) 20.9 % (20.0-40.0) 05/28/17 08:50 [place] % (Auto) 10.0 % (0.0-10.0) 05/28/17 08:50 Eos % (Auto) 1.5 % (0.0-4.0) 05/28/17 08:50 Baso % (Auto) 0.9 % (0.0-2.0) 05/28/17 08:50 Neut # 10.1 K/uL (1.8-7.0) H 05/28/17 08:50 Lymph # 3.2 K/uL (1.0-4.3) 05/28/17 08:50 [place] # 1.5 K/uL (0.0-0.8) H 05/28/17 08:50 Eos # 0.2 K/uL (0.0-0.7) 05/28/17 08:50 Baso # 0.1 K/uL (0.0-0.2) 05/28/17 08:50 Sodium 140 mmol/l (132-148) 05/29/17 04:30 Potassium 4.0 MMOL/L (3.6-5.0) 05/29/17 04:30 Chloride 105 mmol/L (98-107) 05/29/17 04:30 Carbon Dioxide 24 mmol/L (22-30) 05/29/17 04:30 Anion Gap 15 (10-20) 05/29/17 04:30 BUN 14 mg/dl (9-20) 05/29/17 04:30 Creatinine 1.2 mg/dL (0.8-1.5) 05/29/17 04:30 Est GFR ( Amer) > 60 05/29/17 04:30 Est GFR (Non-Af Amer) > 60 05/29/17 04:30 POC Glucose (mg/dL) 102 mg/dL (65-110) 05/28/17 08:43 Random Glucose 90 mg/dL (75-110) 05/29/17 04:30 Calcium 8.7 mg/dL (8.4-10.2) 05/29/17 04:30 Total Bilirubin 0.8 mg/dl (0.2-1.3) 05/29/17 04:30 AST 68 U/L (17-59) H 05/29/17 04:30 ALT 58 U/L (21-72) 05/29/17 04:30 Alkaline Phosphatase 59 U/L (38-126) 05/29/17 04:30 Troponin I < 0.0120 ng/mL (0.00-0.120) 05/29/17 10:35 Total Protein 7.0 G/DL (6.3-8.2) 05/29/17 04:30 Albumin 4.2 g/dL (3.5-5.0) 05/29/17 04:30 Globulin 2.8 gm/dL (2.2-3.9) 05/29/17 04:30 Albumin/Globulin Ratio 1.5 (1.0-2.1) 05/29/17 04:30 Vitamin B12 390 pg/mL (239-931) 05/29/17 04:30 TSH 3rd Generation 0.31 mIU/ML (0.46-4.68) L 05/29/17 04:30 Urine Opiates Screen Negative (NEGATIVE) 05/28/17 08:50 Urine Methadone Screen Negative (NEGATIVE) 05/28/17 08:50 Ur Barbiturates Screen Negative (NEGATIVE) 05/28/17 08:50 Ur Phencyclidine Scrn Negative (NEGATIVE) 05/28/17 08:50 Ur Amphetamines Screen Negative (NEGATIVE) 05/28/17 08:50 U Benzodiazepines Scrn Negative (NEGATIVE) 05/28/17 08:50 U Oth Cocaine Metabols Negative (NEGATIVE) 05/28/17 08:50 U Cannabinoids Screen Negative (NEGATIVE) 05/28/17 08:50 - Hospital Course Hospital Course: neuro work up negative ECHO-normal EF,pvc on EKG cardio\neuro cleared to d\c mild elevation of LFTS,WBC, TSH-LOW Discharge Exam - Head Exam Head Exam: ATRAUMATIC, NORMAL INSPECTION, NORMOCEPHALIC - Additional Findings Additional findings: Appears: Positive for: Non-toxic, No Acute Distress Head Exam: Positive for: ATRAUMATIC. Negative for: NORMOCEPHALIC (head soft tissue swelling to left frontal area with no palpable fracture) Eye Exam: Positive for: Normal appearance, EOMI, PERRL (PERRLA) Neck: Positive for: Normal (nontendor) Cardiovascular/Chest: Positive for: Regular Rate, Rhythm, Chest Non Tender. Negative for: Murmur Respiratory: Positive for: Normal Breath Sounds. Negative for: Respiratory Distress Gastrointestinal/Abdominal: Positive for: Normal Exam, Soft. Negative for: Tenderness Extremity: Positive for: Normal ROM. Negative for: Deformity Neurologic/Psych: Positive for: Alert, Oriented (x3). Negative for: Motor/ Sensory Deficits Discharge Plan - Follow Up Plan Condition: FAIR Disposition: HOME/ ROUTINE Instructions: Syncope (DC), Syncope (GEN)
== END 2017-05-29 20:30 | disposition home or self-care (01) ==
LOC: H.ER 08:19 → H.ERHOLD 10:14 → H.TEL 13:08
PROVIDERS: ADMIT Internal Medicine; ATTEND Internal Medicine
DX: R55 Syncope and collapse (principal); I49.3 Ventricular premature depolarization; J45.909 Unspecified asthma, uncomplicated; R56.9 Unspecified convulsions; E66.01 Morbid (severe) obesity due to excess calories; Z23 Encounter for immunization
CPT/HCPCS: 36415; 70450; 70551; 71020; 80053; 80324; 80345; 80346; 80349; 80353; 80358; 80361; 82607; 82948; 83992; 84443; 84484; 85025; 85027; 90471; 93005; 93306; 93880; 95816; 99285; G0378; J1650; J7040; Q2035

== ENCOUNTER 2017-07-30 21:06 | Emergency (ER) | payer OTHER ==
[2017-07-30 21:06] VITALS: BMI 30.7
[2017-07-30 21:25] VITALS: BP 124/77; PULSE 102; RESP 18; TEMP 98.4; O2SAT 98
--- NOTE | 2017-07-30 21:50 | ED PDOC ---
Upper Extremity Pain/Injury Time Seen by Provider: 07/30/17 21:41 Chief Complaint (Nursing): Finger,Hand,&Wrist Chief Complaint (Provider): finger injury History Per: Patient Additional Complaint(s): 27-year-old [id number] male presents to emergency Department with pain to left thumb. Patient states he put his left thumb in his pocket and his burch accidentally went under his fingernail. Patient initially had profuse bleeding which has since stopped. He complains of mild throbbing pain. Patient did not take any medicine for pain relief prior to arrival. Past Medical History Reviewed: Historical Data, Nursing Documentation, Vital Signs Vital Signs: Last Vital Signs Temp 98.4 F 07/30/17 21:22 Pulse 102 H 07/30/17 21:22 Resp 18 07/30/17 21:22 BP 124/77 07/30/17 21:22 Pulse Ox 98 07/30/17 21:22 - Medical History PMH: Asthma - Surgical History Other surgeries: Left knee surgery x 2 - Family History Family History: States: No Known Family Hx - Living Arrangements Living Arrangements: With Family - Social History Current smoker - smoking cessation education provided: No Alcohol: Social Drugs: Denies - Immunization History Hx Tetanus Toxoid Vaccination: Yes - Home Medications Home Medications: Ambulatory Orders Medication Instructions Recorded Albuterol HFA [Ventolin HFA 90 2 puff IH Q4H PRN 05/28/17 mcg/actuation (8 g)] Ibuprofen [Motrin] 600 mg PO Q6 PRN #15 tab 07/30/17 - Allergies Allergies/Adverse Reactions: Allergies Allergy/AdvReac Type Severity Reaction Status Date / Time shellfish derived Allergy RASH Verified 07/30/17 21:25 Review of Systems ROS Statement: Except As Marked, All Systems Reviewed And Found Negative Musculoskeletal: Positive for: Other (left thumb injury) Physical Exam - Reviewed Nursing Documentation Reviewed: Yes Vital Signs Reviewed: Yes - Physical Exam Appears: Positive for: Well, Non-toxic, No Acute Distress Extremity: Positive for: Other (Dry blood noted to the left thumb, no subungual hematoma, nail plate is well attached, unable to be lifted) Neurologic/Psych: Positive for: Alert, Oriented - ECG O2 Sat by Pulse Oximetry: 98 Pulse Ox Interpretation: Normal Medical Decision Making Medical Decision Makin-year-old male with injury to left thumb Plan: Motrin Nail plate is well attached, no intervention necessary at this time. Patient was advised to ice and elevate affected area and was given prescription for Motrin. Hand referral provided. Disposition - Clinical Impression Clinical Impression: Fingernail injury - Patient ED Disposition Is Patient to be Admitted: No Counseled Patient/Family Regarding: Diagnosis, Need For Followup - Disposition Referrals: Augustin Aguilera MD [Staff Provider] - Disposition: Routine/Home Disposition Time: 22:08 Condition: STABLE Additional Instructions: Ice and elevate affected area. Take Motrin as prescribed for pain as needed. Follow up with hand specialist for any persistent symptoms. Prescriptions: Ibuprofen [Motrin] 600 mg PO Q6 PRN #15 tab PRN Reason: Pain, Moderate (4-7) Instructions: Jammed Finger (ED), Nail Avulsion (ED) Forms: [facility] (Eritrean)
== END 2017-07-30 22:26 | disposition home or self-care (01) ==
LOC: H.ER 21:06
DX: S69.92XA Unspecified injury of left wrist, hand and finger(s), initial encounter (principal); X50.9XXA Other and unspecified overexertion or strenuous movements or postures, initial encounter; Y92.89 Other specified places as the place of occurrence of the external cause; J45.909 Unspecified asthma, uncomplicated

== ENCOUNTER 2017-12-14 08:22 | Emergency (ER) | payer OTHER ==
[2017-12-14 08:23] VITALS: BMI 30.7
[2017-12-14 08:31] VITALS: BP 122/67; PULSE 108; RESP 16; TEMP 98.8; O2SAT 100
[2017-12-14] MEDS ORDERED: Sodium Chloride 0.9% 1,000 ML IV STA (09:11)
--- NOTE | 2017-12-14 09:34 | ED PDOC ---
Lower Extremity Pain/Injury Time Seen by Provider: 12/14/17 08:43 Chief Complaint (Nursing): Headache Chief Complaint (Provider): Headache History Per: Patient History/Exam Limitations: no limitations Onset/Duration Of Symptoms: Sudden Onset Current Symptoms Are (Timing): Still Present Additional Complaint(s): 27 year old male with medical history of asthma, presents to the emergency department with mother for an evaluation of diffuse abdominal pain associated with nausea, bilateral calf pain and cramping ongoing since he woke up this morning at 0730. Patient reported feeling well with normal diet prior to sleeping last night. He denied any fever, chills, vomiting, diarrhea, cough, back pain, shortness of breath or urinary complaints. PMD: Yosi Galindo MD Past Medical History Reviewed: Historical Data, Nursing Documentation, Vital Signs Vital Signs: Last Vital Signs Temp 98.8 F 12/14/17 08:29 Pulse 108 H 12/14/17 08:29 Resp 16 12/14/17 08:29 BP 122/67 12/14/17 08:29 Pulse Ox 100 12/14/17 08:29 - Medical History PMH: Asthma Denies: Chronic Kidney Disease - Surgical History Surgical History: Denies: No Surg Hx Other surgeries: knees - Family History Family History: States: Unknown Family Hx - Living Arrangements Living Arrangements: With Family - Social History Current smoker - smoking cessation education provided: Yes (chews tobacco) Alcohol: None Drugs: Denies - Home Medications Home Medications: Ambulatory Orders Medication Instructions Recorded Albuterol HFA [Ventolin HFA 90 2 puff IH Q4H PRN 05/28/17 mcg/actuation (8 g)] Ibuprofen [Motrin] 600 mg PO Q6 PRN #15 tab 07/30/17 Ondansetron [Zofran] 4 mg PO Q8H #9 tab 12/14/17 - Allergies Allergies/Adverse Reactions: Allergies Allergy/AdvReac Type Severity Reaction Status Date / Time shellfish derived Allergy RASH Verified 07/30/17 21:25 Review of Systems ROS Statement: Except As Marked, All Systems Reviewed And Found Negative Constitutional: Negative for: Fever, Chills Cardiovascular: Negative for: Chest Pain Respiratory: Negative for: Cough, Shortness of Breath Gastrointestinal: Positive for: Nausea, Abdominal Pain (diffuse). Negative for : Vomiting, Diarrhea Genitourinary Male: Negative for: Dysuria, Hematuria Musculoskeletal: Positive for: Leg Pain (bilateral cramping). Negative for: Back Pain Physical Exam - Reviewed Nursing Documentation Reviewed: Yes Vital Signs Reviewed: Yes - Physical Exam Appears: Positive for: Non-toxic, Uncomfortable Head Exam: Positive for: ATRAUMATIC, NORMAL INSPECTION, NORMOCEPHALIC Skin: Positive for: Normal Color Eye Exam: Positive for: Normal appearance, Conjunctival injection (slightly red) . Negative for: Scleral icterus ENT: Positive for: Normal ENT Inspection, Pharynx Is (within normal limits), Other (moist mucous membranes) Neck: Positive for: Normal, Supple Cardiovascular/Chest: Positive for: Regular Rate, Rhythm, Chest Non Tender Respiratory: Positive for: Normal Breath Sounds. Negative for: Decreased Breath Sounds, Wheezing, Respiratory Distress Gastrointestinal/Abdominal: Positive for: Soft, Tenderness (epigastric; RLQ > LLQ). Negative for: Rebound, Other (Adame's sign) Back: Positive for: Normal Inspection. Negative for: L CVA Tenderness, R CVA Tenderness Extremity: Positive for: Normal ROM (upper/lower), Calf Tenderness (bilateral), Other (Qi's sign). Negative for: Pedal Edema (bilateral) Neurologic/Psych: Positive for: Alert (x3), Oriented. Negative for: Motor/ Sensory Deficits - Laboratory Results Result Diagrams: 12/14/17 09:30 12/14/17 09:30 - ECG O2 Sat by Pulse Oximetry: 100 (RA) Pulse Ox Interpretation: Normal Medical Decision Making Medical Decision Making: Initial Impression: Abdominal pain; Nausea; Calf tenderness Initial Plan: * EKG * BMP * Lipase * Urine dipstick * CBC * Xray obstructive series * NS 1,000ml IV per 1,000mls/hr * Pepcid 20mg * Zofran 4mg PO * US Duplex LE Scribe Attestation: Documented by Yanci Dawn, acting as a scribe for Olivia Lynn MD. Provider Scribe Attestation: All medical record entries made by the Scribe were at my direction and personally dictated by me. I have reviewed the chart and agree that the record accurately reflects my personal performance of the history, physical exam, medical decision making, and the department course for this patient. I have also personally directed, reviewed, and agree with the discharge instructions and disposition. 1.30p patient is feeling better. normal now. labs significant only for wbc 13K. CT is negative. US is negative. will d/c Disposition - Clinical Impression Clinical Impression: Viral syndrome - Patient ED Disposition Is Patient to be Admitted: No Doctor Will See Patient In The: Office Counseled Patient/Family Regarding: Diagnosis, Need For Followup, Rx Given - Disposition Referrals: Yosi Galindo MD [Family Provider] - Disposition: Routine/Home Disposition Time: 13:30 Condition: IMPROVED Prescriptions: Ondansetron [Zofran] 4 mg PO Q8H #9 tab Instructions: Viral Syndrome (DC) Forms: [employer] (Sol[place] Islander), [facility] ED School/Work Excuse - POA Present On Arrival: None
[2017-12-14 09:36] LABS: BASO # 0.1 K/uL (0.0-0.2); EOS # 0.1 K/uL (0.0-0.7); EOS % 0.8 % (0.0-4.0); HEMOGLOBIN 15.9 g/dL (12.0-18.0); LYMPH # 2.2 K/uL (1.0-4.3); LYMPH % 15.8 % (20.0-40.0); MEAN CELL VOLUME 84.3 fl (80.0-94.0); MEAN CORPUSCULAR HEMOGLOBIN 28.4 pg (27.0-31.0); MEAN CORPUSCULAR HGB CONC 33.7 g/dL (33.0-37.0); MEAN PLATELET VOLUME 7.9 fl (7.2-11.7); MONO # 1.3 K/uL (0.0-0.8); MONO % 9.7 % (0.0-10.0); NEUT % 72.7 % (50.0-75.0); NRBC % 0.1 % (0.0-0.0); RBC 5.58 Mil/uL (4.40-5.90); RED CELL DISTRIBUTION WIDTH 13.5 % (11.5-14.5); WHITE BLOOD COUNT 13.7 K/uL (4.8-10.8)
[2017-12-14 09:47] LABS: BLOOD UREA NITROGEN 14 mg/dl (9-20); CALCIUM 9.3 mg/dL (8.4-10.2); GFR AFRICAN-AMERICAN > 60; GFR NON-AFRICAN AMERICAN > 60; LIPASE 70 U/L (23-300)
--- NOTE | 2017-12-14 11:45 | RAD ---
PROCEDURE: Radiographs of the chest and abdomen (obstructive series) HISTORY: Abdominal pain and nausea COMPARISON: No prior. TECHNIQUE: AP radiograph of the chest, with upright and supine radiographs of the abdomen. FINDINGS: CHEST: Lungs: The lungs are well inflated and clear. Cardiovascular: Normal size heart. No pulmonary vascular congestion. Pleura: No pleural fluid. No pneumothorax. Other findings: None. ABDOMEN AND PELVIS: Bowel: There is moderate amount of stool in the ascending and transverse colon. The bowel gas pattern is nonspecific. Free air: None. Bones: Unremarkable. Other findings: None. IMPRESSION: Constipation. Nonobstructive bowel gas patent. Clear lungs.
--- NOTE | 2017-12-14 12:52 | CT ---
PROCEDURE: CT Abdomen and Pelvis without intravenous contrast HISTORY: Nausea, blood in urine COMPARISON: 11/24/2015. TECHNIQUE: CT scan of the abdomen and pelvis was performed without administration of intravenous contrast. Oral contrast was not administered. Coronal and sagittal reformatted images were obtained. Radiation dose: Total exam DLP = Total exam DLP = 1214.78 mGy-cm. This CT exam was performed using one or more of the following dose reduction techniques: Automated exposure control, adjustment of the mA and/or kV according to patient size, and/or use of iterative reconstruction technique. FINDINGS: LOWER THORAX: The lung bases are clear. LIVER: Normal in size. No gross lesion or ductal dilatation. GALLBLADDER AND BILE DUCTS: There are no calcified gallstones. PANCREAS: Normal in size. No gross lesion or ductal dilatation. SPLEEN: Normal in size. ADRENALS: No discrete nodule. KIDNEYS AND URETERS: Both kidneys are normal in size without hydronephrosis or nephrolithiasis. . No hydronephrosis. No solid mass. VASCULATURE: No aortic aneurysm. BOWEL: The small bowel loops are normal in caliber. There is moderate amount of stool scattered throughout the colon. No bowel dilatation or obstruction. APPENDIX: Normal appendix. PERITONEUM: No free fluid. No free air. LYMPH NODES: No enlarged lymph nodes. BLADDER: Well distended and normal in appearance. REPRODUCTIVE: Unremarkable. BONES: No acute fracture. Within normal limits for the patient's age. OTHER FINDINGS: None. IMPRESSION: No nephrolithiasis, hydronephrosis or obstructive uropathy. Constipation. No evidence of bowel obstruction.
--- NOTE | 2017-12-14 13:02 | US ---
PROCEDURE: Bilateral lower extremity venous duplex Doppler. HISTORY: bilateral cramps, calf tendeness and Qi, obese COMPARISON: None available. TECHNIQUE: Bilateral common femoral, superficial femoral, popliteal and posterior tibial veins were evaluated. Flow was assessed with color Doppler, compressibility, assessment of phasic flow and augmentation response. FINDINGS: COMMON FEMORAL VEIN: Right CFV: Unremarkable. Left CFV: Unremarkable. SUPERFICIAL FEMORAL VEIN: Right SFV: Unremarkable. Left SFV: Unremarkable. POPLITEAL VEIN: Right Popliteal: Unremarkable. Left Popliteal: Unremarkable. POSTERIOR TIBIAL VEIN: Right PTV: Unremarkable. Left PTV: Unremarkable. OTHER FINDINGS: None. IMPRESSION: No evidence of deep venous thrombosis.
--- NOTE | 2017-12-14 18:08 | CARD ---
APPROVED REPORT EKG Measurement Heart [id number] ID [id number] <Conclusion> Sinus tachycardia Otherwise normal ECG
== END 2017-12-14 14:16 | disposition home or self-care (01) ==
LOC: H.ER 08:22
DX: B34.9 Viral infection, unspecified (principal); E66.9 Obesity, unspecified
CPT/HCPCS: 74022; 74176; 80048; 83690; 85025; 93005; 93970; 96361; 96374; 99285; J7040

== ENCOUNTER 2018-02-05 06:25 | Emergency (ER) | payer OTHER ==
[2018-02-05 06:25] VITALS: BMI 30.7
--- NOTE | 2018-02-05 07:43 | ED PDOC ---
HPI: General Adult Time Seen by Provider: 02/05/18 07:10 Chief Complaint (Nursing): Headache Chief Complaint (Provider): Headache and sleep walking History Per: Patient History/Exam Limitations: no limitations Onset/Duration Of Symptoms: Hrs Current Symptoms Are (Timing): Still Present Additional Complaint(s): 28 year old male, with a past medical history of asthma, presented to the ED complaining of waking up confused with a headache and sleep walking 3 to 4 times a year. He also indicates feeling nauseous which has since resolved. Patient reports the last episode was in december. He had seen his PCP, Dr. Galindo, who referred him to a neurologist who ordered sleep studies which patient has yet to obtain. He denies fever, CP, abdominal pain, and vomiting. PCP: Yosi Tolbert Past Medical History Reviewed: Historical Data, Nursing Documentation, Vital Signs Vital Signs: Last Vital Signs Temp 98.9 F 02/05/18 10:17 Pulse 89 02/05/18 10:17 Resp 16 02/05/18 10:17 BP 122/71 02/05/18 10:17 Pulse Ox 99 02/05/18 10:17 - Medical History PMH: Asthma Denies: Chronic Kidney Disease - Surgical History Other surgeries: Knee surgery - Family History Family History: States: Unknown Family Hx - Social History Current smoker - smoking cessation education provided: Yes (Chews tobacco daily) Alcohol: Occasional Drugs: Denies - Immunization History Hx Tetanus Toxoid Vaccination: Yes - Home Medications Home Medications: Ambulatory Orders Medication Instructions Recorded Albuterol HFA [Ventolin HFA 90 2 puff IH Q4H PRN 05/28/17 mcg/actuation (8 g)] Ibuprofen [Motrin] 600 mg PO Q6 PRN #15 tab 07/30/17 Ondansetron [Zofran] 4 mg PO Q8H #9 tab 12/14/17 - Allergies Allergies/Adverse Reactions: Allergies Allergy/AdvReac Type Severity Reaction Status Date / Time shellfish derived Allergy RASH Verified 02/05/18 06:39 Review of Systems ROS Statement: Except As Marked, All Systems Reviewed And Found Negative Constitutional: Negative for: Fever Cardiovascular: Negative for: Chest Pain Gastrointestinal: Negative for: Vomiting, Abdominal Pain Neurological: Positive for: Confusion, Headache Physical Exam - Reviewed Nursing Documentation Reviewed: Yes Vital Signs Reviewed: Yes - Physical Exam Appears: Positive for: Non-toxic, No Acute Distress Head Exam: Positive for: ATRAUMATIC, NORMAL INSPECTION, NORMOCEPHALIC Skin: Positive for: Normal Color, Warm, Dry Eye Exam: Positive for: Normal appearance ENT: Positive for: Normal ENT Inspection Neck: Positive for: Normal, Painless ROM Cardiovascular/Chest: Positive for: Regular Rate, Rhythm. Negative for: Murmur Respiratory: Positive for: Normal Breath Sounds. Negative for: Wheezing, Respiratory Distress Gastrointestinal/Abdominal: Positive for: Normal Exam, Soft. Negative for: Tenderness Back: Positive for: Normal Inspection. 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 Negative for: Motor/Sensory Deficits, Aphasia, Facial Droop Comments: Patient appears obese. - Laboratory Results Result Diagrams: 02/05/18 07:43 02/05/18 07:43 - ECG O2 Sat by Pulse Oximetry: 94 (RA) Medical Decision Making Medical Decision Making: Initial Impression: Headache and confusion with history of sleep walking. today had episdoe of it as well. rule out intracranial process or electrolyte abnormality. Initial Plan: Head CT CMP CBC Tylenol 650mg PO Reglan 10mg IV 8:[address] FINDINGS: HEMORRHAGE: No intracranial hemorrhage. BRAIN: Pascal-white matter differentiation is preserved. There is no mass, mass effect or abnormal extra-axial fluid collection. There is no territorial infarction VENTRICLES: The ventricles are normal in size, shape and configuration. CALVARIUM: The skull base and calvarium are normal. PARANASAL SINUSES: There is moderate polypoid mucosal thickening in the right maxillary sinus with fluid level. The remaining included paranasal sinuses are predominantly clear. MASTOID AIR CELLS: Right mastoid air cells are underdeveloped. The left mastoid and cells are clear. OTHER FINDINGS: None. IMPRESSION: No acute intracranial abnormality. Acute and/or chronic right maxillary sinusitis. pt aware of results. pt stable for dc home, will carlos enrique diaz with neurologist for sleep studies. pt neurologically intact and alert, awake and oriented throughout ER stay. Scribe Attestation: Documented by Wallace Worthy acting as a scribe for Jamil Romero MD. Provider Scribe Attestation: All medical record entries made by the Scribe were at my direction and personally dictated by me. I have reviewed the chart and agree that the record accurately reflects my personal performance of the history, physical exam, medical decision making, and the department course for this patient. I have also personally directed, reviewed, and agree with the discharge instructions and disposition. Disposition - Clinical Impression Clinical Impression: Headache - Patient ED Disposition Is Patient to be Admitted: No Counseled Patient/Family Regarding: Studies Performed, Diagnosis, Need For Followup - Disposition Disposition: Routine/Home Disposition Time: 09:45 Condition: IMPROVED Additional Instructions: follow up with your primary doctor in 1-2 days/follow up with neurologist for sleep study return to the ED with any worsening or concerning symptoms Instructions: Headache, Adult (DC) Forms: [employer] (Maori)
[2018-02-05 07:53] LABS: BASO # 0.1 K/uL (0.0-0.2); BASO % 0.8 % (0.0-2.0); EOS # 0.2 K/uL (0.0-0.7); EOS % 1.4 % (0.0-4.0); HEMOGLOBIN 15.6 g/dL (12.0-18.0); LYMPH # 2.3 K/uL (1.0-4.3); LYMPH % 16.2 % (20.0-40.0); MEAN CELL VOLUME 83.4 fl (80.0-94.0); MEAN CORPUSCULAR HGB CONC 33.6 g/dL (33.0-37.0); MONO # 1.3 K/uL (0.0-0.8); MONO % 9.5 % (0.0-10.0); NEUT % 72.1 % (50.0-75.0); NRBC % 0.1 % (0.0-0.0); RBC 5.56 Mil/uL (4.40-5.90); RED CELL DISTRIBUTION WIDTH 13.1 % (11.5-14.5); WHITE BLOOD COUNT 13.9 K/uL (4.8-10.8)
[2018-02-05 08:02] LABS: ALB/GLOB RATIO 1.3 (1.0-2.1); ALBUMIN 4.2 g/dL (3.5-5.0); ALT/SGPT 52 U/L (21-72); AST/SGOT 36 U/L (17-59); BLOOD UREA NITROGEN 15 mg/dl (9-20); CALCIUM 9.1 mg/dL (8.4-10.2); GFR AFRICAN-AMERICAN > 60; GFR NON-AFRICAN AMERICAN > 60
[2018-02-05] MEDS ORDERED: Sodium Chloride 0.9% 1,000 ML IV STA (08:06)
--- NOTE | 2018-02-05 08:40 | CT ---
PROCEDURE: CT HEAD WITHOUT CONTRAST. HISTORY: Headache COMPARISON: 05/28/2017. TECHNIQUE: Axial computed tomography images were obtained through the head/brain without intravenous contrast. Radiation dose: Total exam DLP = 944.71 mGy-cm. This CT exam was performed using one or more of the following dose reduction techniques: Automated exposure control, adjustment of the mA and/or kV according to patient size, and/or use of iterative reconstruction technique. FINDINGS: HEMORRHAGE: No intracranial hemorrhage. BRAIN: Pascal-white matter differentiation is preserved. There is no mass, mass effect or abnormal extra-axial fluid collection. There is no territorial infarction VENTRICLES: The ventricles are normal in size, shape and configuration. CALVARIUM: The skull base and calvarium are normal. PARANASAL SINUSES: There is moderate polypoid mucosal thickening in the right maxillary sinus with fluid level. The remaining included paranasal sinuses are predominantly clear. MASTOID AIR CELLS: Right mastoid air cells are underdeveloped. The left mastoid and cells are clear. OTHER FINDINGS: None. IMPRESSION: No acute intracranial abnormality. Acute and/or chronic right maxillary sinusitis.
[2018-02-05 10:18] VITALS: BP 122/71; PULSE 89; RESP 16; TEMP 98.9
[2018-02-07 08:47] VITALS: O2SAT 94
== END 2018-02-05 10:26 | disposition home or self-care (01) ==
LOC: H.ER 06:25
DX: R51 Headache (principal); F51.3 Sleepwalking [somnambulism]; F17.200 Nicotine dependence, unspecified, uncomplicated; J45.909 Unspecified asthma, uncomplicated
CPT/HCPCS: 70450; 80053; 85025; 99285; J7030

== ENCOUNTER 2018-04-10 06:25 | Emergency (ER) | payer OTHER ==
[2018-04-10 06:25] VITALS: BMI 30.7
--- NOTE | 2018-04-10 07:24 | ED PDOC ---
HPI: Headache Time Seen by Provider: 04/10/18 07:13 Chief Complaint (Nursing): Headache Chief Complaint (Provider): Headache History Per: Patient History/Exam Limitations: no limitations Onset/Duration Of Symptoms: Hrs Current Symptoms Are (Timing): Still Present Additional Complaint(s): 28 year old male presents to the ED for an evaluation of a headache. Complains he feels dehydrated since today morning. He denies diarrhea, abdominal pain, fever or neck stiffness. PMD: Yosi Galindo Past Medical History Reviewed: Historical Data, Nursing Documentation, Vital Signs Vital Signs: Last Vital Signs Temp 98.7 F 04/10/18 06:29 Pulse 106 H 04/10/18 06:29 Resp 18 04/10/18 06:29 BP 130/78 04/10/18 06:29 Pulse Ox 95 04/10/18 06:29 - Medical History PMH: Asthma Denies: Chronic Kidney Disease - Family History Family History: States: Unknown Family Hx - Social History Current smoker - smoking cessation education provided: No Alcohol: None Drugs: Denies - Immunization History Hx Tetanus Toxoid Vaccination: Yes - Home Medications Home Medications: Ambulatory Orders Medication Instructions Recorded Albuterol HFA [Ventolin HFA 90 2 puff IH Q4H PRN 05/28/17 mcg/actuation (8 g)] Ibuprofen [Motrin] 600 mg PO Q6 PRN #15 tab 07/30/17 Ondansetron [Zofran] 4 mg PO Q8H #9 tab 12/14/17 - Allergies Allergies/Adverse Reactions: Allergies Allergy/AdvReac Type Severity Reaction Status Date / Time shellfish derived Allergy SWELLING Verified 04/10/18 06:32 Review of Systems ROS Statement: Except As Marked, All Systems Reviewed And Found Negative Constitutional: Positive for: Other (dehydrated). Negative for: Fever Gastrointestinal: Negative for: Abdominal Pain, Diarrhea Musculoskeletal: Negative for: Neck Pain Neurological: Positive for: Headache Physical Exam - Reviewed Nursing Documentation Reviewed: Yes Vital Signs Reviewed: Yes - Physical Exam Appears: Positive for: Non-toxic, No Acute Distress Head Exam: Positive for: ATRAUMATIC, NORMAL INSPECTION, NORMOCEPHALIC Skin: Positive for: Normal Color, Warm, Dry Eye Exam: Positive for: EOMI, Normal appearance, PERRL ENT: Positive for: Other (mucous membrane dry) Neck: Positive for: Normal, Painless ROM, Supple. Negative for: Decreased ROM Cardiovascular/Chest: Positive for: Regular Rate, Rhythm. Negative for: Murmur Respiratory: Positive for: Normal Breath Sounds. Negative for: Respiratory Distress Gastrointestinal/Abdominal: Positive for: Normal Exam, Bowel Sounds, Soft Back: Positive for: Normal Inspection Extremity: Positive for: Normal ROM. Negative for: Tenderness, Pedal Edema, Deformity Neurologic/Psych: Positive for: Alert, Oriented (x3) - Laboratory Results Result Diagrams: 04/10/18 08:17 04/10/18 08:17 - ECG O2 Sat by Pulse Oximetry: 95 (RA) Pulse Ox Interpretation: Normal - Progress Re-evaluation Time: 11:20 Condition: Improved Medical Decision Making Medical Decision Making: Time: 716 Initial Impression: headache Initial Plan: --CMP --CBC w/ Differential --Sodium Chloride 0.9% 200mls/hr --Toradol 30mg --Reevaluation Scribe Attestation: Documented by Willy Padilla, acting as a scribe for Quinn Swift MD Pt afebrile, no focus of infection found for WBC 17. No meningeal signs. Pt feels better and wishes to go home Provider Scribe Attestation: All medical record entries made by the Scribe were at my direction and personally dictated by me. I have reviewed the chart and agree that the record accurately reflects my personal performance of the history, physical exam, medical decision making, and the department course for this patient. I have also personally directed, reviewed, and agree with the discharge instructions and disposition. Disposition - Clinical Impression Clinical Impression: Dehydration - Patient ED Disposition Is Patient to be Admitted: No Counseled Patient/Family Regarding: Studies Performed, Diagnosis, Need For Followup, Rx Given - Disposition Referrals: [facility] [Outside] Disposition: Routine/Home Disposition Time: 11:21 Condition: FAIR Instructions: Dehydration, Adult (DC) Forms: [employer] ([place]an)
[2018-04-10] MEDS: Sodium Chloride 0.9% 1,000 ML IV STA (07:53)
[2018-04-10 08:23] LABS: BASO # 0.1 K/uL (0.0-0.2); BASO % 0.6 % (0.0-2.0); EOS # 0.1 K/uL (0.0-0.7); EOS % 0.7 % (0.0-4.0); HEMOGLOBIN 16.2 g/dL (12.0-18.0); LYMPH # 2.1 K/uL (1.0-4.3); LYMPH % 12.2 % (20.0-40.0); MEAN CELL VOLUME 83.2 fl (80.0-94.0); MEAN CORPUSCULAR HEMOGLOBIN 28.5 pg (27.0-31.0); MEAN CORPUSCULAR HGB CONC 34.3 g/dL (33.0-37.0); MEAN PLATELET VOLUME 8.2 fl (7.2-11.7); MONO # 1.5 K/uL (0.0-0.8); NEUT # 13.4 K/uL (1.8-7.0); NEUT % 77.5 % (50.0-75.0); NRBC % 0.1 % (0.0-0.0); RBC 5.69 Mil/uL (4.40-5.90); RED CELL DISTRIBUTION WIDTH 13.7 % (11.5-14.5); WHITE BLOOD COUNT 17.2 K/uL (4.8-10.8)
[2018-04-10 08:42] LABS: ALB/GLOB RATIO 1.4 (1.0-2.1); ALBUMIN 4.5 g/dL (3.5-5.0); ALT/SGPT 50 U/L (21-72); AST/SGOT 42 U/L (17-59); BLOOD UREA NITROGEN 16 mg/dl (9-20); CALCIUM 9.6 mg/dL (8.4-10.2); GFR AFRICAN-AMERICAN > 60; GFR NON-AFRICAN AMERICAN > 60
[2018-04-10 11:33] VITALS: BP 128/77; PULSE 81; RESP 16; TEMP 98.1; O2SAT 99
== END 2018-04-10 11:33 | disposition home or self-care (01) ==
LOC: H.ER 06:25
DX: E86.0 Dehydration (principal)
CPT/HCPCS: 80053; 85025; 96374; 99283; J1885; J7030

== ENCOUNTER 2018-05-28 22:45 | Emergency (ER) | payer OTHER ==
[~2018-05-28 22:45] MED LIST: Barium Sulfate Susp 2.1% w/v, 2.0% w/w 450 mL Bottle PO ONE
[2018-05-28 22:46] VITALS: BMI 30.7
[2018-05-28] MEDS ORDERED: Sodium Chloride 0.9% 1,000 ML IV STA (23:38)
--- NOTE | 2018-05-28 23:40 | ED PDOC ---
HPI: Abdomen Time Seen by Provider: 05/28/18 23:21 Chief Complaint (Nursing): Abdominal Pain Chief Complaint (Provider): abdominal pain History Per: Patient History/Exam Limitations: no limitations Onset/Duration Of Symptoms: Hrs (12) Current Symptoms Are (Timing): Still Present Location Of Pain/Discomfort: LLQ Additional Complaint(s): 28 y/o male presents for evaluation of left lower abdominal pain x 12 hours. Patient states he woke up with the pain, which got progressively worse throughout the day. Patient reports urinating and having more bowel movements than usual today. Denies fever, vomiting, chest pain, shortness of breath, palpitations, hematuria, diarrhea. Past Medical History Reviewed: Historical Data, Nursing Documentation, Vital Signs Vital Signs: Last Vital Signs Temp 98.6 F 05/29/18 03:30 Pulse 88 05/29/18 03:30 Resp 18 05/29/18 03:30 BP 142/82 05/29/18 03:30 Pulse Ox 100 05/29/18 03:52 - Medical History PMH: Asthma Denies: Chronic Kidney Disease - Surgical History Other surgeries: Left knee sx - Family History Family History: States: Unknown Family Hx - Immunization History Hx Tetanus Toxoid Vaccination: Yes - Home Medications Home Medications: Ambulatory Orders Medication Instructions Recorded Albuterol HFA [Ventolin HFA 90 2 puff IH Q4H PRN 05/28/17 mcg/actuation (8 g)] Ibuprofen [Motrin] 600 mg PO Q6 PRN #15 tab 07/30/17 Ondansetron [Zofran] 4 mg PO Q8H #9 tab 12/14/17 Ciprofloxacin HCl [Cipro] 500 mg PO BID #19 tab 05/29/18 Metronidazole [Flagyl] 500 mg PO TID #29 tablet 05/29/18 traMADol [Ultram] 50 mg PO Q8 PRN #10 tab 05/29/18 - Allergies Allergies/Adverse Reactions: Allergies Allergy/AdvReac Type Severity Reaction Status Date / Time shellfish derived Allergy SWELLING Verified 05/28/18 23:17 Review of Systems ROS Statement: Except As Marked, All Systems Reviewed And Found Negative Gastrointestinal: Positive for: Nausea, Abdominal Pain Physical Exam - Reviewed Nursing Documentation Reviewed: Yes Vital Signs Reviewed: Yes - Physical Exam Appears: Positive for: Well, Non-toxic, No Acute Distress Head Exam: Positive for: ATRAUMATIC, NORMAL INSPECTION, NORMOCEPHALIC Skin: Positive for: Normal Color Eye Exam: Positive for: Normal appearance ENT: Positive for: Normal ENT Inspection Cardiovascular/Chest: Positive for: Regular Rate, Rhythm Respiratory: Positive for: Normal Breath Sounds Gastrointestinal/Abdominal: Positive for: Bowel Sounds, Soft, Tenderness (LLQ) Back: Positive for: Normal Inspection Extremity: Positive for: Normal ROM Neurologic/Psych: Positive for: Alert, Oriented (x3) - Laboratory Results Result Diagrams: 05/28/18 23:50 05/28/18 23:50 - ECG O2 Sat by Pulse Oximetry: 100 - Progress ED Course And Treament: labs, urine, CT abd/pelvis, IV toradol, IV fluids EXAM: CT Abdomen and Pelvis With Intravenous Contrast EXAM DATE/TIME: 05/28/2018 11:47 PM CLINICAL HISTORY: 28 years old, male; Pain; Abdominal pain; Localized; Left lower quadrant (llq); Additional info: Llq pain TECHNIQUE: Axial computed tomography images of the abdomen and pelvis with intravenous contrast. Coronal and sagittal reformatted images were created and reviewed. CONTRAST: 0 ml of 0 administered intravenously. COMPARISON: CT ABD PELVIS PO CONTRAST ONLY 11/24/2015 2:21 AM FINDINGS: Lower thorax: No acute findings. ABDOMEN: Liver: Normal. No mass. Gallbladder and bile ducts: Normal. No calcified stones. No ductal dilation. Pancreas: Normal. No ductal dilation. Spleen: Normal. No splenomegaly. Adrenals: Normal. No mass. Kidneys and ureters: Normal. No hydronephrosis. Stomach and bowel: Normal. No obstruction. No mucosal thickening. Appendix: A normal appendix is identified. PELVIS: Bladder: Unremarkable as visualized. Reproductive: Unremarkable as visualized. ABDOMEN and PELVIS: Intraperitoneal space: Normal. No free air. No significant fluid collection. Bones/joints: No acute fracture. No dislocation. Soft tissues: There is a fat-containing umbilical hernia. Vasculature: Normal. No abdominal aortic aneurysm. Lymph nodes: Normal. No enlarged lymph nodes. IMPRESSION: No evidence of an acute intra-abdominal or pelvic abnormality. No nephrolithiasis or obstructive uropathy. No acute colitis Patient educated on findings, given elevated WBC and pain will treat with abx. Patient discharged with rx Cipro (dose given in ED), flagyl (dose given in ED), tramadol Advised follow up PMD 2-3 days Return precautions given Patient demonstrates full understanding of discharge instructions Patient requires no further intervention in the ED and is stable for discharge at this time Disposition - Clinical Impression Clinical Impression: UTI (urinary tract infection), Abdominal pain - Patient ED Disposition Is Patient to be Admitted: No Counseled Patient/Family Regarding: Studies Performed, Diagnosis, Need For Followup, Rx Given - Disposition Disposition: Routine/Home Disposition Time: 03:30 Condition: IMPROVED Prescriptions: Ciprofloxacin HCl [Cipro] 500 mg PO BID #19 tab Metronidazole [Flagyl] 500 mg PO TID #29 tablet traMADol [Ultram] 50 mg PO Q8 PRN #10 tab PRN Reason: Pain, Severe (8-10) Instructions: Urinary Tract Infections in Adults, Acute Abdomen (Belly Pain) Forms: [employer] [facility] (Mongolian)
[2018-05-29] MEDS ORDERED: Barium Sulfate Susp 2.1% w/v, 2.0% w/w 450 mL Bottle PO ONE
[2018-05-29 00:04] LABS: BASO # 0.1 K/uL (0.0-0.2); BASO % 0.6 % (0.0-2.0); EOS # 0.1 K/uL (0.0-0.7); EOS % 0.8 % (0.0-4.0); HEMOGLOBIN 15.8 g/dL (12.0-18.0); LYMPH % 18.5 % (20.0-40.0); MEAN CELL VOLUME 83.2 fl (80.0-94.0); MEAN CORPUSCULAR HEMOGLOBIN 27.9 pg (27.0-31.0); MEAN CORPUSCULAR HGB CONC 33.5 g/dL (33.0-37.0); MONO # 1.3 K/uL (0.0-0.8); NEUT # 11.6 K/uL (1.8-7.0); NEUT % 72.1 % (50.0-75.0); NRBC % 0.1 % (0.0-0.0); RBC 5.65 Mil/uL (4.40-5.90); RED CELL DISTRIBUTION WIDTH 14.2 % (11.5-14.5); WHITE BLOOD COUNT 16.2 K/uL (4.8-10.8)
[2018-05-29 00:08] LABS: ALB/GLOB RATIO 1.3 (1.0-2.1)
[2018-05-29 00:10] LABS: URINE BILIRUBIN NEGATIVE (NEGATIVE); URINE BLOOD NEGATIVE (NEGATIVE); URINE CLARITY CLEAR (Clear); URINE COLOR YELLOW (YELLOW); URINE GLUCOSE (UA) NEG (Normal); URINE LEUKOCYTE ESTERASE SMALL Leu/uL (Negative); URINE PROTEIN NEGATIVE (NEGATIVE); URINE UROBILINOGEN 0.2-1.0 mg/dL (0.2-1.0)
[2018-05-29 00:48] LABS: ALBUMIN 4.7 g/dL (3.5-5.0); ALT/SGPT 58 U/L (21-72); AST/SGOT 47 U/L (17-59); BLOOD UREA NITROGEN 15 mg/dl (9-20); CALCIUM 9.7 mg/dL (8.4-10.2); GFR NON-AFRICAN AMERICAN > 60
[2018-05-29 01:35] LABS: VENOUS BLOOD GAS BASE EXCESS -1.3 mmol/L (0.0-2.0); VENOUS BLOOD GAS PCO2 40 mmHg (40-60); VENOUS BLOOD GAS PO2 62 mm/Hg (30-55); VENOUS BLOOD PH 7.38 (7.32-7.43)
[2018-05-29 03:46] VITALS: BP 142/82; PULSE 88; RESP 18; TEMP 98.6
[2018-05-29 03:52] VITALS: O2SAT 100
--- NOTE | 2018-05-29 08:23 | CT ---
Date of service: 05/29/2018 PROCEDURE: CT Abdomen and Pelvis with contrast HISTORY: llq pain COMPARISON: 12/14/2017 TECHNIQUE: Contrast dose: No IV contrast administered.oral contrast was administered Radiation dose: Total exam DLP = 851 MGy-cm. This CT exam was performed using one or more of the following dose reduction techniques: Automated exposure control, adjustment of the mA and/or kV according to patient size, and/or use of iterative reconstruction technique. FINDINGS: LOWER THORAX: Unremarkable. LIVER: Unremarkable. No gross lesion or ductal dilatation. GALLBLADDER AND BILE DUCTS: Unremarkable. PANCREAS: Unremarkable. No gross lesion or ductal dilatation. SPLEEN: Unremarkable. ADRENALS: Unremarkable. No mass. KIDNEYS AND URETERS: Unremarkable. No hydronephrosis. No solid mass. No nephrolithiasis seen VASCULATURE: Unremarkable. No aortic aneurysm. BOWEL: Unremarkable. No obstruction. No gross mural thickening. APPENDIX: Normal appendix. PERITONEUM: Unremarkable. No free fluid. No free air. LYMPH NODES: Unremarkable. No enlarged lymph nodes. BLADDER: Unremarkable. REPRODUCTIVE: Unremarkable. BONES: No acute fracture. OTHER FINDINGS: Minimal bilateral groin fat only containing hernias noted. Left study slightly greater than the right. No bowel containing hernia suggested IMPRESSION: Minimal bilateral groin fat only containing hernias noted. Left study slightly greater than the right. No bowel containing hernia suggested Otherwise unremarkable exam Concordant results (preliminary interpretation) provided by [employer].
== END 2018-05-29 03:36 | disposition home or self-care (01) ==
LOC: H.ER 22:45
DX: N39.0 Urinary tract infection, site not specified (principal)
CPT/HCPCS: 74176; 80053; 81003; 82803; 85025; 87040; 87086; 96374; 99284; J1885; J7030

== ENCOUNTER 2018-06-13 03:32 | Emergency (ER) | payer OTHER ==
[2018-06-13 03:32] VITALS: BMI 30.7
[2018-06-13] MEDS ORDERED: Sodium Chloride 0.9% 1,000 ML IV STA (04:04)
--- NOTE | 2018-06-13 04:09 | ED PDOC ---
HPI: Headache Time Seen by Provider: 06/13/18 03:55 Chief Complaint (Nursing): Headache Chief Complaint (Provider): headache, right knee pain History Per: Patient History/Exam Limitations: no limitations Onset/Duration Of Symptoms: Days, Waxing/Waning Additional Complaint(s): 28 y/o male presents for evaluation of intermittent headaches x 1 year. Patient states sometimes he will wake up and not know where he is. Patient states he was seen by a Neurologist and sent for sleep study tests but has not yet been able to go because they are in [place] and it is hard for him to get there. Denies fever, dizziness, vision changes, extremity numbness/weakness, nausea/vomiting, neck/back pain, chest pain, shortness of breath, palpitations, abdominal pain. Patient also reports right knee pain x 4 days after sliding into a base while playing baseball. States pain present only upon bending knee. Denies numbness/weakness right lower extremity, limitation of movement. Past Medical History Reviewed: Historical Data, Nursing Documentation, Vital Signs Vital Signs: Last Vital Signs Temp 98.4 F 06/13/18 03:47 Pulse 105 H 06/13/18 03:47 Resp 16 06/13/18 03:47 BP 134/78 06/13/18 03:47 Pulse Ox 97 06/13/18 03:47 - Medical History PMH: Asthma Denies: Chronic Kidney Disease - Surgical History Other surgeries: left knee surgery - Family History Family History: States: Unknown Family Hx - Living Arrangements Living Arrangements: With Family - Immunization History Hx Tetanus Toxoid Vaccination: Yes - Home Medications Home Medications: Ambulatory Orders Medication Instructions Recorded RX: Albuterol HFA [Ventolin HFA 90 2 puff IH Q4H PRN 05/28/17 mcg/actuation (8 g)] Ibuprofen [Motrin] 600 mg PO Q6 PRN #15 tab 07/30/17 Ondansetron [Zofran] 4 mg PO Q8H #9 tab 12/14/17 Ciprofloxacin HCl [Cipro] 500 mg PO BID #19 tab 05/29/18 Metronidazole [Flagyl] 500 mg PO TID #29 tablet 05/29/18 RX: traMADol [Ultram] 50 mg PO Q8 PRN #10 tab 05/29/18 RX: Naproxen [Naprosyn] 500 mg PO Q12 PRN #20 tablet 06/13/18 - Allergies Allergies/Adverse Reactions: Allergies Allergy/AdvReac Type Severity Reaction Status Date / Time shellfish derived Allergy SWELLING Verified 05/28/18 23:17 Review of Systems ROS Statement: Except As Marked, All Systems Reviewed And Found Negative Musculoskeletal: Positive for: Leg Pain (right knee) Neurological: Positive for: Headache Physical Exam - Reviewed Nursing Documentation Reviewed: Yes Vital Signs Reviewed: Yes - Physical Exam Appears: Positive for: Well, Non-toxic, No Acute Distress Head Exam: Positive for: ATRAUMATIC, NORMAL INSPECTION, NORMOCEPHALIC Skin: Positive for: Normal Color Eye Exam: Positive for: Normal appearance, EOMI, PERRL ENT: Positive for: Normal ENT Inspection Neck: Positive for: Normal, Painless ROM Cardiovascular/Chest: Positive for: Regular Rate, Rhythm Respiratory: Positive for: Normal Breath Sounds Gastrointestinal/Abdominal: Positive for: Normal Exam Back: Positive for: Normal Inspection Extremity: Positive for: Normal ROM (pain right knee with flexion), Tenderness (tender to palpate patello-femoral tendon without edema, deformity. + abrasion overlying patella. FROM. Distal NV/motor intact ) Neurologic/Psych: Positive for: Alert, Oriented (x3). Negative for: Motor/Sensory Deficits - ECG O2 Sat by Pulse Oximetry: 97 - Other Rad xray right knee X-Ray: Viewed By Me X-Ray Interpretation: no acute findings - Progress ED Course And Treament: Patient with 3 ED visits for headache symptoms since 12/2017; had normal head CT on 02/05 Patient AAOx3, normal vitals. Patient educated on these findings; advised he will need to f/up with neurologist and go for sleep study as previously instructed. Patient requesting IV fluids; states he feels better when he gets IV fluids IV NS, IV toradol and right knee xray ordered Right knee abrasion cleaned with NS, bacitracin applied, bandage applied Knee immobilizer applied On re-eval, patient states he is feeling better Patient educated on findings, discharged with rx Naproxen Advised RICE Follow up ortho for knee, follow up neuro for headaches Return precautions given Patient demonstrates full understanding of discharge instructions Patient requires no further intervention in the ED and is stable for discharge at this time Disposition - Clinical Impression Clinical Impression: Headache, Right knee injury, Abrasion of right knee - Patient ED Disposition Is Patient to be Admitted: No Counseled Patient/Family Regarding: Studies Performed, Diagnosis, Need For Followup, Rx Given - Disposition Referrals: Ruth Atkins MD [Staff Provider] - Disposition: Routine/Home Disposition Time: 06:00 Condition: IMPROVED Prescriptions: RX: Naproxen [Naprosyn] 500 mg PO Q12 PRN #20 tablet PRN Reason: Pain, Moderate (4-7) Instructions: Headache, Adult, Skin Abrasions, Knee Pain Forms: [employer] (Wolof)
[2018-06-13 06:09] VITALS: BP 128/68; PULSE 82; RESP 17; TEMP 98.2
--- NOTE | 2018-06-13 10:39 | RAD ---
Date of service: 06/13/2018 PROCEDURE: Right Knee Radiographs. HISTORY: injury, pain COMPARISON: None. FINDINGS: BONES: No acute fracture or destructive bony lesion identified. JOINTS: Borderline lateral femorotibial compartment joint space narrowing, particularly laterally with osteophyte development present. Limited osteophyte development is seen at the patellofemoral compartment. Articular cortical sclerosis appreciate seen all 3 joint compartments. The findings compatible with mild try compatible degenerative joint disease. JOINT EFFUSION: None. OTHER FINDINGS: None. IMPRESSION: Mild tricompartment osteoarthritis right knee. No fracture or dislocation identified.
[2018-06-14 04:20] VITALS: O2SAT 97
== END 2018-06-13 05:41 | disposition home or self-care (01) ==
LOC: H.ER 03:32
DX: R51 Headache (principal); S80.211A Abrasion, right knee, initial encounter; W19.XXXA Unspecified fall, initial encounter; Y92.89 Other specified places as the place of occurrence of the external cause
CPT/HCPCS: 73562; 96360; 99285; J1885; J7030

== ENCOUNTER 2018-08-09 05:47 | Emergency (ER) | payer OTHER ==
[2018-08-09 05:47] VITALS: BMI 30.7
--- NOTE | 2018-08-09 06:27 | ED PDOC ---
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 Patient reports he has no symptoms currently but he was woke up by his parents in the middle of the night for having some trembling and he appeared to have difficulty breathing. He states similar symptoms happened before multiple times and reports he had multiple negative work ups. Patient reports he is due for sleep apnea test. He denies any incontinent, biting mouth, chest pain or shortness of breath currently. PMD: Manuel Weaver Past Medical History Reviewed: Historical Data, Nursing Documentation, Vital Signs Vital Signs: Last Vital Signs Temp 98.3 F 08/09/18 05:53 Pulse 122 H 08/09/18 05:53 Resp 16 08/09/18 05:53 BP 135/86 08/09/18 05:53 Pulse Ox 98 08/09/18 05:53 - Medical History PMH: Asthma Denies: Chronic Kidney Disease - Surgical History Surgical History: No Surg Hx - Family History Family History: States: Unknown Family Hx - Social History Current smoker - smoking cessation education provided: Yes (Chewing Tobacco ) Alcohol: None Drugs: Denies - Immunization History Hx Tetanus Toxoid Vaccination: Yes - Home Medications Home Medications: Ambulatory Orders Medication Instructions Recorded Albuterol HFA [Ventolin HFA 90 2 puff IH Q4H PRN 05/28/17 mcg/actuation (8 g)] Ibuprofen [Motrin] 600 mg PO Q6 PRN #15 tab 07/30/17 Ondansetron [Zofran] 4 mg PO Q8H #9 tab 12/14/17 Ciprofloxacin HCl [Cipro] 500 mg PO BID #19 tab 05/29/18 Metronidazole [Flagyl] 500 mg PO TID #29 tablet 05/29/18 traMADol [Ultram] 50 mg PO Q8 PRN #10 tab 05/29/18 Naproxen [Naprosyn] 500 mg PO Q12 PRN #20 tablet 06/13/18 - Allergies Allergies/Adverse Reactions: Allergies Allergy/AdvReac Type Severity Reaction Status Date / Time shellfish derived Allergy SWELLING Verified 05/28/18 23:17 Review of Systems ROS Statement: Except As Marked, All Systems Reviewed And Found Negative Cardiovascular: Negative for: Chest Pain Respiratory: Positive for: Shortness of Breath (resolved) Neurological: Positive for: Headache (mild throbbing) Physical Exam - Reviewed Nursing Documentation Reviewed: Yes Vital Signs Reviewed: Yes - Physical Exam Appears: Positive for: Non-toxic, No Acute Distress (morbid obese) Head Exam: Positive for: ATRAUMATIC, NORMOCEPHALIC Skin: Positive for: Normal Color, Warm, Dry Eye Exam: Positive for: Normal appearance, EOMI, PERRL Neck: Positive for: Normal, Painless ROM, Supple Cardiovascular/Chest: Positive for: Regular Rate, Rhythm. Negative for: Murmur Respiratory: Positive for: Normal Breath Sounds. Negative for: Wheezing Gastrointestinal/Abdominal: Positive for: Normal Exam, Soft. Negative for: Tenderness Back: Positive for: Normal Inspection. Negative for: L CVA Tenderness, R CVA Tenderness Extremity: Positive for: Normal ROM. Negative for: Pedal Edema, Deformity Neurologic/Psych: Positive for: Alert, Oriented (x3) - Laboratory Results Result Diagrams: 08/09/18 06:40 08/09/18 06:40 - ECG O2 Sat by Pulse Oximetry: 98 (RA) Pulse Ox Interpretation: Normal Medical Decision Making Medical Decision Making: Time: 618 A/P: 28 years old male presents with episode of resolved shortness of breath and shaking --Based on history, seizure unlikely. Will check lactic acid to rule our seizure --Body habitus could be a contributor factor of sleep apnea resulting in today's symptoms --Will check blood work to rule out cardiac or pulmonary involvement [address] Hooks, pending labs. Scribe Attestation: Documented by Nava Do, acting as a scribe for Russ Macias MD. Provider Scribe Attestation: All medical record entries made by the Scribe were at my direction and personally dictated by me. I have reviewed the chart and agree that the record accurately reflects my personal performance of the history, physical exam, medical decision making, and the department course for this patient. I have also personally directed, reviewed, and agree with the discharge instructions and disposition. Disposition - Clinical Impression Clinical Impression: Dyspnea - Patient ED Disposition Is Patient to be Admitted: Transfer of Care - Disposition Referrals: Jed Snyder, [facility], [facility] [facility] [Advanced Practice Nurse] - 08/12/18 Disposition: Transfer of Care Disposition Time: 07:00 Condition: STABLE Additional Instructions: Return if not better in 3 days. Instructions: Shortness of Breath (Dyspnea) (DC) Forms: [employer] ([place] Islander), [facility] ED School/Work Excuse Patient Signed Over To: Amanuel Hooks Handoff Comments: pending workup
[2018-08-09 06:53] LABS: BASO # 0.1 K/uL (0.0-0.2); BASO % 0.5 % (0.0-2.0); EOS # 0.2 K/uL (0.0-0.7); EOS % 1.4 % (0.0-4.0); HEMOGLOBIN 16.1 g/dL (12.0-18.0); MEAN CELL VOLUME 84.2 fl (80.0-94.0); MEAN CORPUSCULAR HEMOGLOBIN 28.2 pg (27.0-31.0); MEAN CORPUSCULAR HGB CONC 33.5 g/dL (33.0-37.0); MEAN PLATELET VOLUME 8.2 fl (7.2-11.7); MONO # 1.3 K/uL (0.0-0.8); MONO % 7.5 % (0.0-10.0); NEUT # 12.2 K/uL (1.8-7.0); NEUT % 72.6 % (50.0-75.0); NRBC % 0.1 % (0.0-0.0); RBC 5.72 Mil/uL (4.40-5.90); RED CELL DISTRIBUTION WIDTH 13.6 % (11.5-14.5); WHITE BLOOD COUNT 16.7 K/uL (4.8-10.8)
[2018-08-09 07:01] LABS: BLOOD UREA NITROGEN 16 mg/dl (9-20); CALCIUM 9.6 mg/dL (8.4-10.2); GFR NON-AFRICAN AMERICAN > 60
--- NOTE | 2018-08-09 07:39 | ED PDOC ---
- Laboratory Results Result Diagrams: 08/09/18 06:40 08/09/18 06:40 Interpretation Of Abn Labs: wbc chronically elevated, dimer elevated, lactate 3.3 - ECG ECG: Positive for: Interpreted By Me, Viewed By Me ECG Rhythm: Positive for: Normal QRS, Normal ST Segment, Sinus Rhythm O2 Sat by Pulse Oximetry: 97 Pulse Ox Interpretation: Normal - Radiology X-Ray: Interpreted by Me, Viewed By Me X-Ray Interpretation: No Acute Disease - CT Scan/US ct Other Rad Studies (CT/US): Read By Radiologist Other Rad Interpretation: no acute - Progress ED Course And Treament: 700: Took over care from Dr. Macias. Fu on labs. Here with shakes and gasping in the middle of the night. Has had similar many times in the past. Feels at baseline currently. 740: Dimer elevated. Will ct. 1102: Stable. AAOx3. Pain free. Tolerated PO. Feels at baseline. Ambulated with no issues. Disposition - Clinical Impression Clinical Impression: Dyspnea - POA Present On Arrival: None - Disposition Referrals: Jed Snyder, MARINA, [employer] [Advanced Practice Nurse] - 08/12/18 Disposition: Routine/Home Disposition Time: 11:05 Condition: STABLE Additional Instructions: Return if not better in 3 days. Instructions: Shortness of Breath (Dyspnea) (DC) Forms: [facility] ([place]ic), [facility] ED School/Work Excuse
[2018-08-09] MEDS ORDERED: Sodium Chloride 0.9% 1,000 ML IV STA (07:49)
--- NOTE | 2018-08-09 08:36 | RAD ---
Date of service: 08/09/2018 HISTORY: sob COMPARISON: Chest radiographs 05/28/2017. TECHNIQUE: Chest PA and lateral FINDINGS: LUNGS: No active pulmonary disease. PLEURA: No significant pleural effusion identified. No pneumothorax apparent. CARDIOVASCULAR: No aortic atherosclerotic calcification present. Normal cardiac size. No pulmonary vascular congestion. OSSEOUS STRUCTURES: No significant abnormalities. VISUALIZED UPPER ABDOMEN: Normal. OTHER FINDINGS: None. IMPRESSION: No interval acute cardiopulmonary disease appreciated.
[2018-08-09] MEDS ORDERED: Sodium Chloride 0.9% 50 ML IV ONE (08:38)
[2018-08-09] MEDS ORDERED: Iodixanol 320 MG/ML 100 ML BOTTLE IV ONE (08:38)
--- NOTE | 2018-08-09 10:08 | CT ---
Date of service: 08/09/2018 PROCEDURE: CT Chest with contrast (Pulmonary Angiogram) HISTORY: chest pain COMPARISON: None available. TECHNIQUE: Axial computed tomography images were obtained of the chest in the pulmonary arterial phase of enhancement. Coronal and sagittal reformatted images were created and reviewed. Intravenous contrast dose: Visipaque 320, 99 cc Radiation dose: Total exam DLP = 464.45 mGy-cm. This CT exam was performed using one or more of the following dose reduction techniques: Automated exposure control, adjustment of the mA and/or kV according to patient size, and/or use of iterative reconstruction technique. FINDINGS: PULMONARY ARTERIES: Pulmonary arterial opacification is somewhat limited with peripheral segmental branches somewhat limited evaluation. Main and proximal segmental branches appear unremarkable bilaterally. Pulmonary artery is dilated to 3.4 cm potentially reflecting pulmonary artery hypertension. There is no dilatation of the right lateral ventricle. Clinically correlate nevertheless. AORTA: No acute findings. No thoracic aortic aneurysm. No aortic atherosclerotic calcification or mural plaque present. LUNGS: Unremarkable. No nodule, mass or pulmonary consolidation. PLEURAL SPACES: Unremarkable. No effusion or pneumothorax. HEART: Unremarkable. No cardiomegaly. No significant pericardial effusion. LYMPH NODES: No lymphadenopathy. BONES, CHEST WALL: Unremarkable. No fracture or destructive lesion OTHER FINDINGS: Unremarkable. IMPRESSION: No CT evidence of pulmonary embolus at central and proximal to mid segmental branches. Peripheral pulmonary branches are somewhat limited evaluation due to stage of contrast enhancement of the pulmonary arteries. No infiltrate, pleural or pericardial effusion identified. No significant lymphadenopathy in the chest. Dilatation of the pulmonary artery up to 3.4 cm may indicate pulmonary artery hypertension. Clinically correlate further. No right ventricle enlargement.
[2018-08-09 11:29] VITALS: BP 128/74; PULSE 84; RESP 16; TEMP 98.5; O2SAT 98
--- NOTE | 2018-08-09 19:41 | CARD ---
APPROVED REPORT Date of service: 08/09/2018 EKG Measurement Heart [id number] <Conclusion> Sinus tachycardia Otherwise normal ECG
== END 2018-08-09 11:27 | disposition home or self-care (01) ==
LOC: H.ER 05:47
DX: R06.00 Dyspnea, unspecified (principal); E66.01 Morbid (severe) obesity due to excess calories; F17.200 Nicotine dependence, unspecified, uncomplicated
CPT/HCPCS: 71046; 71275; 80048; 82948; 83605; 84484; 85025; 85378; 93005; 96360; 99285; J7030; Q9967